=== PATIENT | female | born 1980 | race Caucasian/White ===

== ENCOUNTER 2016-11-06 08:29 | Emergency (ER) | payer MEDICAID ==
[2016-11-06 08:29] VITALS: BMI 29.7
--- NOTE | 2016-11-06 09:09 | C.PDOC ---
History Of Present Illness 36 y/o female presents to the ED complaining of vaginal bleeding since this morning. She reports that she is 6 weeks and she noticed bleeding after intercourse. Patient denies any care and states she has not seen an DIRECTOR IMMUNOLOGY, she just took two home tests. Patient notes that she had 4 prior pregnancies, 3 c-sections, and 1 miscarriage. She denies any abdominal pain, back pain, chest pain, fevers, or other complaints. Time Seen by Provider: 11/06/16 08:51 Chief Complaint (Nursing): Female Genitourinary History Per: Patient History/Exam Limitations: no limitations Onset/Duration Of Symptoms: Hrs, Sudden Onset, Persistent Current Symptoms Are (Timing): Still Present Recent travel outside of the [place]: No Past Medical History Reviewed: Historical Data, Nursing Documentation, Vital Signs Vital Signs: Last Vital Signs Temp 98.9 F 11/06/16 11:51 Pulse 64 11/06/16 11:51 Resp 17 11/06/16 11:51 BP 112/69 11/06/16 11:51 Pulse Ox 97 11/06/16 12:07 - Medical History PMH: Anemia, Asthma, Cardia Arrhythmia (Xmqus-Culedjobg-Hveax syndrome) Surgical History: No Surg Hx - [facility] Procedures EXTRACTION OF POC, LOW CERVICAL, OPEN APPROACH (12/10/15) TETANUS TOXOID ADMINIST (02/18/15) Family History: States: Unknown Family Hx - Social History Hx Tobacco Use: No Hx Alcohol Use: No Hx Substance Use: No - Immunization History Hx Tetanus Toxoid Vaccination: Yes Hx Influenza Vaccination: Yes (May 2016) Hx Pneumococcal Vaccination: No Review Of Systems Constitutional: Negative for: Fever Cardiovascular: Negative for: Chest Pain Respiratory: Negative for: Cough, Shortness of Breath Gastrointestinal: Negative for: Vomiting, Abdominal Pain, Diarrhea Genitourinary: Positive for: Vaginal Bleeding. Negative for: Dysuria Musculoskeletal: Negative for: Back Pain Neurological: Negative for: Headache, Dizziness Physical Exam - Physical Exam Appears: Non-toxic, No Acute Distress Skin: Normal Color, Warm, Dry Head: Atraumatic, Normacephalic Eye(s): bilateral: Normal Inspection, EOMI Neck: Normal ROM, Supple Chest: Symmetrical Cardiovascular: Rhythm Regular Respiratory: Normal Breath Sounds, No Rales, No Rhonchi, No Wheezing Gastrointestinal/Abdominal: Soft, No Tenderness, No Mass, No Distention, No Guarding, No Rebound Back: Normal Inspection, No CVA Tenderness Extremity: Bilateral: Atraumatic, Normal Color And Temperature, Normal ROM Neurological/Psych: Oriented x3, Normal Speech Gait: Steady ED Course And Treatment - Laboratory Results Result Diagrams: 11/06/16 09:20 11/06/16 09:20 O2 Sat by Pulse Oximetry: 97 (ra) Pulse Ox Interpretation: Normal - CT Scan/US Ultrasound Other Rad Studies (CT/US): Read By Radiologist (DR. Waddell, Rosa Valencia MD), Radiology Report Reviewed CT/US Interpretation: Findings: The uterus measures approximately 12.6 x 6.0 x 6.5 cm. Anteverted. Cervix length measures approximately 3.6 cm. There is a single intrauterine fetus present. 2 mm yolk sac. Irregular-appearing gestational sac is noted within the lower uterine segment and measures approximately 1.5 cm, compatible with a gestational age of 5 weeks 6 days. The crown-rump length measures 0.1 cm, too small for gestational age calculation. There is heart motion which measured 93.8 BPM. The right ovary measures 7.5 x 6.0 x 5.1 cm and contains 2 adjacent cysts versus 6.1 x 5.3 x 5.3 cm septated cyst. The left ovary measures 3.0 x 1.5 x 2.2 cm. Flow was demonstrated to both ovaries. Small pelvic free fluid. Impression: Irregular- appearing gestational sac is noted within the lower uterine segment. Estimated gestational 5 weeks 6 days. Bradycardia with heart rate 93.8 bpm. Recommend RESEARCH PROGRAM INTERNSHIP consultation, clinical correlation, and close follow-up as indicated. Advise an anomaly screen at 16-18 weeks gestational age. Two adjacent cysts versus septated 6.1 cm right ovarian cyst. Recommend attention on short-term follow-up (6 weeks). - Physician Consult Information Time Consulting Physician Contacted: 12:05 Physician Contacted: Mookie Ortega Outcome Of Conversation: Discussed case including US findings and labs. Recommends repeat US in one week and to follow up with ob.application development project manager in 2 days Medical Decision Making Medical Decision Making: Impression: Vaginal bleeding. Pt states 6 weeks Plan: * Ultrasound * Blood Work * Urinalysis * Urine HCG * Urine Culture Progress: Labs and urinalysis reviewed and unremarkable. [facility] is >[id number] US reviewed showing Irregular-appearing gestational sac is noted within the lower uterine segment. Estimated gestational 5 weeks 6 days. Bradycardia with heart rate 93.8 bpm. Recommend RESEARCH PROGRAM INTERNSHIP consultation, clinical correlation, and close follow-up as indicated. Advise an anomaly screen at 16-18 weeks gestational age. Spoke with ob.application development project manager Dr Ortega who recommends follow up and repeat US in one week Patient remained afebrile alert and oriented in no acute distress. Advise patient to follow up with transportation mechanic for further evaluation and repeat lab and US in one week Disposition Counseled Patient/Family Regarding: Need For Followup, Rx Given - Disposition Referrals: [facility] [Outside] [facility] [Outside] Disposition: HOME/ ROUTINE Disposition Time: 12:05 Condition: STABLE Additional Instructions: Your ultrasound shows 5weeks 6 days . Please follow up with ob.application development project manager in 2 days and repeat ultrasound in 1 week Return to the emergency department at any time if symptoms persist or worsen. Instructions: Threatened Miscarriage (ED) - POA Present On Arrival: None - Clinical Impression Clinical Impression: Threatened - PA / FRAME POLISHER / Resident Statement MD/DO has reviewed & agrees with the documentation as recorded. - Scribe Statement The provider has reviewed the documentation as recorded by the Scribe (Nayana Portillo) All medical record entries made by the Scribe were at my direction and personally dictated by me. I have reviewed the chart and agree that the record accurately reflects my personal performance of the history, physical exam, medical decision making, and the department course for this patient. I have also personally directed, reviewed, and agree with the discharge instructions and disposition.
[2016-11-06 09:26] LABS: RBC URINE 298 /hpf (0-3); URINE BACTERIA RARE (<OCC); URINE BILIRUBIN NEGATIVE (NEGATIVE); URINE BLOOD 3+ (NEGATIVE); URINE COLOR Yellow (YELLOW); URINE GLUCOSE (UA) NORMAL (Normal); URINE KETONE NEGATIVE (NEGATIVE); URINE LEUKOCYTE ESTERASE NEG Leu/uL (Negative); URINE PROTEIN NEGATIVE (NEGATIVE); URINE UROBILINOGEN NORMAL mg/dL (0.2-1.0); WBC URINE 1 /hpf (0-5)
[2016-11-06 09:34] LABS: BASO # 0.1 K/uL (0.0-0.2); BASO % 1.1 % (0.0-2.0); EOS # 0.2 K/uL (0.0-0.7); EOS % 3.5 % (0.0-4.0); LYMPH # 1.2 K/uL (1.0-4.3); LYMPH % 19.8 % (20.0-40.0); MEAN CELL VOLUME 79.5 fL (81.0-99.0); MEAN CORPUSCULAR HEMOGLOBIN 28.2 pg (27.0-31.0); MEAN CORPUSCULAR HGB CONC 35.4 g/dL (33.0-37.0); MEAN PLATELET VOLUME 7.4 fL (7.2-11.7); MONO # 0.3 K/uL (0.0-0.8); MONO % 5.4 % (0.0-10.0); RED CELL DISTRIBUTION WIDTH 13.9 % (11.5-14.5); WHITE BLOOD COUNT 5.9 K/uL (4.8-10.8)
[2016-11-06 09:41] LABS: CHLORIDE 100 mmol/L (98-107)
[2016-11-06 09:42] LABS: POTASSIUM 4.1 mmol/L (3.6-5.2); SODIUM 138 mmol/L (132-148)
[2016-11-06 09:44] LABS: ALB/GLOB RATIO 1.2 (1.0-2.1); ALKALINE PHOSPHATASE 44 U/L (38-126); AST/SGOT 15 U/L (14-36); BILIRUBIN,TOTAL 0.7 mg/dL (0.2-1.3); BLOOD UREA NITROGEN 11 mg/dL (7-17); CARBON DIOXIDE 24 mmol/L (22-30); GFR AFRICAN-AMERICAN > 60; TOTAL PROTEIN 7.3 g/dL (6.3-8.3)
[2016-11-06 09:45] LABS: ALT/SGPT 22 U/L (9-52); CALCIUM 8.9 mg/dl (8.6-10.4); GLUCOSE,RANDOM 102 mg/dL (65-105)
--- NOTE | 2016-11-06 11:49 | US ---
1st trimester ultrasound Indication: 6 week with bleeding Comparison: None Technique: Real-time transabdominal pelvic ultrasound was performed. In addition a transvaginal pelvic ultrasound was necessary to better depict pelvic anatomy Findings: The uterus measures approximately 12.6 x 6.0 x 6.5 cm. Anteverted. Cervix length measures approximately 3.6 cm. There is a single intrauterine fetus present. 2 mm yolk sac. Irregular-appearing gestational sac is noted within the lower uterine segment and measures approximately 1.5 cm, compatible with a gestational age of 5 weeks 6 days. The crown-rump length measures 0.1 cm, too small for gestational age calculation. There is heart motion which measured 93.8 BPM. The right ovary measures 7.5 x 6.0 x 5.1 cm and contains 2 adjacent cysts versus 6.1 x 5.3 x 5.3 cm septated cyst. The left ovary measures 3.0 x 1.5 x 2.2 cm. Flow was demonstrated to both ovaries. Small pelvic free fluid. Impression: Irregular-appearing gestational sac is noted within the lower uterine segment. Estimated gestational 5 weeks 6 days. Bradycardia with heart rate 93.8 bpm. Recommend WATER RESOURCES TECHNICAL OFFICER consultation, clinical correlation, and close follow-up as indicated. Advise an anomaly screen at 16-18 weeks gestational age. Two adjacent cysts versus septated 6.1 cm right ovarian cyst. Recommend attention on short-term follow-up (6 weeks).
[2016-11-06 11:54] VITALS: BP 112/69; PULSE 64; RESP 17; TEMP 98.9
[2016-11-06 11:59] VITALS: O2SAT 97
== END 2016-11-06 12:20 | disposition home or self-care (01) ==
LOC: C.ER 08:29
DX: O20.0 Threatened abortion (principal); Z3A.01 Less than 8 weeks gestation of pregnancy

== ENCOUNTER 2016-11-07 10:31 | Emergency (ER) | payer MEDICAID ==
[2016-11-07 11:08] VITALS: BMI 31.8
--- NOTE | 2016-11-07 12:10 | C.PDOC ---
History Of Present Illness 36 y/o female presents to the ED for evaluation of abdominal cramping. She reports that she is 6 weeks , A1, and she hasn't had any care or been to see the TURBO OPERATOR, she just took two home tests. Patient also notes that she had 3 c-sections and it is common in her family to give pre term. She states that she was evaluated in the ED yesterday for vaginal bleeding and ultrasound showed irregular gestational sac and bradycardia of the fetus. Today patient passed some tissue which she has brought with her to the ED, stating that she is upset because she is concerned for miscarriage. Otherwise patient reports bleeding has subsided. She denies any fevers, shortness of breath, urinary symptoms, back pain, or vomiting. Time Seen by Provider: 11/07/16 11:43 Chief Complaint (Nursing): Female Genitourinary History Per: Patient History/Exam Limitations: no limitations Onset/Duration Of Symptoms: Days (1), Intermittent Episodes, Gradual, Persistent Current Symptoms Are (Timing): Still Present Recent travel outside of the [place]: No Past Medical History Reviewed: Historical Data, Nursing Documentation, Vital Signs Vital Signs: Last Vital Signs Temp 98.3 F 11/07/16 13:32 Pulse 73 11/07/16 13:32 Resp 16 11/07/16 13:32 BP 131/80 11/07/16 13:32 Pulse Ox 98 11/07/16 13:32 - Medical History PMH: Anemia, Asthma, Cardia Arrhythmia (Tncwx-Wdqgzalpa-Usjky syndrome) Surgical History: No Surg Hx - [facility] Procedures EXTRACTION OF POC, LOW CERVICAL, OPEN APPROACH (12/10/15) TETANUS TOXOID ADMINIST (02/18/15) Family History: States: Unknown Family Hx - Social History Hx Tobacco Use: No Hx Alcohol Use: No Hx Substance Use: No - Immunization History Hx Tetanus Toxoid Vaccination: Yes Hx Influenza Vaccination: Yes (May 2016) Hx Pneumococcal Vaccination: No Review Of Systems Except As Marked, All Systems Reviewed And Found Negative. Constitutional: Negative for: Fever Respiratory: Negative for: Shortness of Breath Gastrointestinal: Positive for: Abdominal Pain (cramping). Negative for: Vomiting Genitourinary: Positive for: Vaginal Bleeding (resolved), Other (passing tissue) . Negative for: Dysuria Musculoskeletal: Negative for: Back Pain Physical Exam - Physical Exam Appears: Non-toxic, No Acute Distress Skin: Normal Color, Warm, Dry Head: Atraumatic, Normacephalic Eye(s): bilateral: Normal Inspection, PERRL Oral Mucosa: Moist Neck: Normal ROM, Supple Chest: Symmetrical Cardiovascular: Rhythm Regular Respiratory: Normal Breath Sounds, No Rales, No Rhonchi, No Wheezing Gastrointestinal/Abdominal: Normal Exam, Soft, No Tenderness Back: Normal Inspection, No CVA Tenderness Extremity: Normal ROM Neurological/Psych: Oriented x3, Normal Speech, Normal Cognition ED Course And Treatment O2 Sat by Pulse Oximetry: 100 (ra) Pulse Ox Interpretation: Normal - CT Scan/US pelvic US Other Rad Studies (CT/US): Read By Radiologist, Radiology Report Reviewed CT/US Interpretation: Accession No. : [id number]. Patient Name / ID : SYLVAIN MONCADA / [id number]. Exam Date : 11/07/2016 12:48:08 ( Approved ). Study Comment : Sex / Age : F / 36Y. Creator : Rosa Bruno MD. Dictator : Rosa Bruno MD. Deputy Insurance Commissioner : Grape Picker : Rosa Bruno MD. Approver2 : Report Date : 11/07/2016 13:23:54. My Comment : . Indication: , seen yesterday, passed tissue today. Comparison: 1st trimester ultrasound performed 11/06/16. Technique: Transvaginal pelvic ultrasound. Findings: The uterus measures approximately 11.8 x 6.3 x 7.4 cm. Anteverted. Cervix length measures approximately 3.6 cm. There is a single intrauterine fetus present. The gestational sac is identified within the lower uterine segment and measures 1.6 cm and is compatible with a gestational age of 5 weeks 6 days. The crown-rump length measures 0.2 cm and is compatible with a gestational age of 5 weeks 5 days. There is heart motion which measured 96.7 BPM. The right ovary measures 7.0 x 6.2 x 7.0 cm. Right adnexal septated 6.4 x 6.2 x 5.1 cm cyst. The left ovary measures 3.3 x 2.1 x 2.6 cm. Blood flow was demonstrated to both ovaries. Impression: Live single intrauterine with estimated gestational age 5 weeks 6 days. Gestational sac is noted within the lower uterine segment. heart rate 96.7 bpm, bradycardia. 6.4 cm right adnexal cyst. Recommend attention on short-term follow-up (6 weeks) Progress Note: Ultrasound was ordered and still shows viable IUP. Patient was instructed to follow up with OBGYN. Bed rest and pelvic rest were recommended. Disposition - Disposition Disposition: HOME/ ROUTINE Disposition Time: 13:44 Condition: STABLE Additional Instructions: Follow up with PMD within 1-2 days. return to ED if feel worse. Bed rest and pelvic rest as we discussed. Instructions: Threatened Miscarriage (ED) - Clinical Impression Clinical Impression: Threatened in early - PA / CNC MACHINE OPERATOR / Resident Statement MD/DO has reviewed & agrees with the documentation as recorded. - Scribe Statement The provider has reviewed the documentation as recorded by the Scribe (Nayana Portillo) All medical record entries made by the Scribe were at my direction and personally dictated by me. I have reviewed the chart and agree that the record accurately reflects my personal performance of the history, physical exam, medical decision making, and the department course for this patient. I have also personally directed, reviewed, and agree with the discharge instructions and disposition.
--- NOTE | 2016-11-07 13:25 | US ---
Indication: , seen yesterday, passed tissue today Comparison: 1st trimester ultrasound performed 11/06/16 Technique: Transvaginal pelvic ultrasound. Findings: The uterus measures approximately 11.8 x 6.3 x 7.4 cm. Anteverted. Cervix length measures approximately 3.6 cm. There is a single intrauterine fetus present. The gestational sac is identified within the lower uterine segment and measures 1.6 cm and is compatible with a gestational age of 5 weeks 6 days. The crown-rump length measures 0.2 cm and is compatible with a gestational age of 5 weeks 5 days. There is heart motion which measured 96.7 BPM. The right ovary measures 7.0 x 6.2 x 7.0 cm. Right adnexal septated 6.4 x 6.2 x 5.1 cm cyst. The left ovary measures 3.3 x 2.1 x 2.6 cm. Blood flow was demonstrated to both ovaries. Impression: Live single intrauterine with estimated gestational age 5 weeks 6 days. Gestational sac is noted within the lower uterine segment. heart rate 96.7 bpm, bradycardia. 6.4 cm right adnexal cyst. Recommend attention on short-term follow-up (6 weeks).
[2016-11-07 13:33] VITALS: BP 131/80; PULSE 73; RESP 16; TEMP 98.3
[2016-11-07 13:51] VITALS: O2SAT 100
== END 2016-11-07 14:13 | disposition home or self-care (01) ==
LOC: C.ER 10:31
DX: O20.0 Threatened abortion (principal); Z3A.01 Less than 8 weeks gestation of pregnancy

== ENCOUNTER 2016-11-18 21:06 | Emergency (ER) | payer MEDICAID ==
[2016-11-18 21:06] VITALS: BMI 31.8
[2016-11-18] MEDS ORDERED: Sodium Chloride 0.9% 1,000 ML IV ONE (21:49)
--- NOTE | 2016-11-18 21:49 | C.PDOC ---
History Of Present Illness 36 y/o female, who is 7 weeks , a1, presents to ED with complaint of vaginal bleeding since this morning. Patient notes bleeding has been progressively worsening throughout the day. Denies fever, chills, nausea, or vomiting. Time Seen by Provider: 11/18/16 21:49 Chief Complaint (Nursing): Abdominal Pain History Per: Patient History/Exam Limitations: no limitations Onset/Duration Of Symptoms: Hrs Current Symptoms Are (Timing): Still Present Pain Scale Rating Of: 0 Location Of Pain/Discomfort: Suprapubic Radiation Of Pain To:: None Quality Of Discomfort: Cramping Associated Symptoms: denies: Vomiting, Diarrhea Recent travel outside of the [place]: No Abnormal Vaginal Bleeding: Yes : 5 Para: 3 Miscarriage: 1 Past Medical History Reviewed: Historical Data, Nursing Documentation, Vital Signs Vital Signs: Last Vital Signs Temp 99.0 F 11/18/16 23:11 Pulse 76 11/18/16 23:11 Resp 16 11/18/16 23:11 BP 117/74 11/18/16 23:11 Pulse Ox 98 11/18/16 23:11 - Medical History PMH: Anemia, Asthma, Cardia Arrhythmia (Efuqs-Ddbpluejy-Ihrgp syndrome) - [facility] Procedures EXTRACTION OF POC, LOW CERVICAL, OPEN APPROACH (12/10/15) TETANUS TOXOID ADMINIST (02/18/15) Family History: States: Unknown Family Hx - Social History Hx Tobacco Use: No Hx Alcohol Use: No Hx Substance Use: No - Immunization History Hx Tetanus Toxoid Vaccination: Yes Hx Influenza Vaccination: Yes (May 2016) Hx Pneumococcal Vaccination: No Review Of Systems Constitutional: Negative for: Fever, Chills Gastrointestinal: Positive for: Abdominal Pain. Negative for: Nausea, Vomiting Genitourinary: Positive for: Vaginal Bleeding. Negative for: Vaginal Discharge Physical Exam - Physical Exam Appears: Non-toxic, No Acute Distress Skin: Warm, Dry Oral Mucosa: Moist Chest: Symmetrical Cardiovascular: Rhythm Regular Respiratory: No Rales, No Rhonchi, No Wheezing Gastrointestinal/Abdominal: Soft, Tenderness (mild, suprapubic), No Guarding, No Rebound Back: Normal Inspection Extremity: Normal ROM Neurological/Psych: Oriented x3, Normal Speech, Normal Cognition ED Course And Treatment - Laboratory Results Result Diagrams: 11/18/16 22:10 11/18/16 22:10 O2 Sat by Pulse Oximetry: 97 (RA) Pulse Ox Interpretation: Normal Progress Note: Labs, ultrasound, IVFs. Reevaluation Time: 23:23 Reassessment Condition: Improved Disposition Counseled Patient/Family Regarding: Studies Performed, Diagnosis - Disposition Referrals: Patricia Chapa MD [Medical Doctor] - Disposition: HOME/ ROUTINE Disposition Time: 21:49 Condition: FAIR Instructions: Threatened Miscarriage (ED) - Clinical Impression Clinical Impression: Threatened in early , Subchorionic hemorrhage - Scribe Statement The provider has reviewed the documentation as recorded by the Nghia Garcia Provider Attestation: Provider Scribe Attestation: All medical record entries made by the Rose Marieibe were at my direction and personally dictated by me. I have reviewed the chart and agree that the record accurately reflects my personal performance of the history, physical exam, medical decision making, and the department course for this patient. I have also personally directed, reviewed, and agree with the discharge instructions and disposition.
[2016-11-18 22:13] LABS: BASO # 0.1 K/uL (0.0-0.2); BASO % 0.9 % (0.0-2.0); EOS # 0.1 K/uL (0.0-0.7); LYMPH # 1.5 K/uL (1.0-4.3); LYMPH % 20.1 % (20.0-40.0); MEAN CELL VOLUME 79.9 fL (81.0-99.0); MEAN CORPUSCULAR HEMOGLOBIN 27.3 pg (27.0-31.0); MEAN CORPUSCULAR HGB CONC 34.2 g/dL (33.0-37.0); MEAN PLATELET VOLUME 7.3 fL (7.2-11.7); MONO # 0.4 K/uL (0.0-0.8); MONO % 5.2 % (0.0-10.0); NRBC % 0.1 % (0.0-2.0); RED CELL DISTRIBUTION WIDTH 14.4 % (11.5-14.5); WHITE BLOOD COUNT 7.3 K/uL (4.8-10.8)
[2016-11-18 22:21] LABS: RBC URINE 28 /hpf (0-3); URINE BACTERIA RARE (<OCC); URINE BILIRUBIN NEGATIVE (NEGATIVE); URINE BLOOD 3+ (NEGATIVE); URINE COLOR Yellow (YELLOW); URINE GLUCOSE (UA) NORMAL (Normal); URINE KETONE NEGATIVE (NEGATIVE); URINE LEUKOCYTE ESTERASE NEG Leu/uL (Negative); URINE PROTEIN 1+ mg/dL (NEGATIVE); URINE UROBILINOGEN NORMAL mg/dL (0.2-1.0); WBC URINE 2 /hpf (0-5)
[2016-11-18 22:22] LABS: INR 1.1
[2016-11-18 22:23] LABS: CHLORIDE 100 mmol/L (98-107); SODIUM 134 mmol/L (132-148)
[2016-11-18 22:24] LABS: POTASSIUM 4.1 mmol/L (3.6-5.2)
[2016-11-18 22:26] LABS: ALB/GLOB RATIO 1.3 (1.0-2.1); ALKALINE PHOSPHATASE 47 U/L (38-126); AST/SGOT 15 U/L (14-36); BLOOD UREA NITROGEN 12 mg/dL (7-17); CARBON DIOXIDE 20 mmol/L (22-30); GFR AFRICAN-AMERICAN > 60; GLUCOSE,RANDOM 93 mg/dL (65-105); TOTAL PROTEIN 7.2 g/dL (6.3-8.3)
[2016-11-18 22:27] LABS: ALT/SGPT 23 U/L (9-52)
--- NOTE | 2016-11-18 22:54 | US ---
EXAM: US First Trimester, Transabdominal. CLINICAL HISTORY: 36 years old, female; Signs and symptoms; Lmp or gestational age (in weeks): 09/25/2016; Other: Vaginal bleeding; ; Additional info: Vag bleed, 7 weeks preg TECHNIQUE: Real-time transabdominal obstetrical ultrasound of the maternal pelvis and a first trimester with image documentation. COMPARISON: No relevant prior studies available. FINDINGS: Gestation: Single live intrauterine gestation, located within lower uterine segment. heart rate of 140 beats per minute. Sawyer-rump length of 1.46 cm, correlating with gestational age of 7 weeks 6 days. Uterus/cervix: 3.1 x 0.7 x 1.7 cm collection along gestational sac. No cervical dilatation or effacement. Ovaries: RIGHT ovary: 6.9 x 4.7 x 5.8 cm septated anechoic lesion. LEFT ovary: Normal. No adnexal masses. Free fluid: No significant free fluid. IMPRESSION: 1. Single live intrauterine gestation with low implantation. 2. Subchorionic hemorrhage. 3. Probable RIGHT ovarian cyst. 4. Incidental/non-acute findings are described above. EXAM: US , Transvaginal. CLINICAL HISTORY: 36 years old, female; Signs and symptoms; Lmp or gestational age (in weeks): 09/25/2016; Other: Vaginal bleeding; ; Additional info: Vag bleed, 7 weeks preg TECHNIQUE: Real-time transvaginal obstetrical ultrasound of the maternal pelvis and a first trimester with image documentation. Transvaginal imaging was used for better evaluation of the fetus and adnexa. COMPARISON: No relevant prior studies available. FINDINGS: Gestation: Single live intrauterine gestation, located within lower uterine segment. heart rate of 140 beats per minute. Sawyer-rump length of 1.46 cm, correlating with gestational age of 7 weeks 6 days. Uterus/cervix: 3.1 x 0.7 x 1.7 cm collection along gestational sac. No cervical dilatation or effacement. Ovaries: RIGHT ovary: 6.9 x 4.7 x 5.8 cm septated anechoic lesion. LEFT ovary: Normal. No adnexal masses. Free fluid: No significant free fluid.
[2016-11-18 23:25] VITALS: O2SAT 97
[2016-11-19 00:37] VITALS: BP 103/53; PULSE 87; RESP 18; TEMP 98.4
== END 2016-11-19 01:11 | disposition home or self-care (01) ==
LOC: C.ER 21:06
DX: O20.0 Threatened abortion (principal); Z3A.01 Less than 8 weeks gestation of pregnancy
CPT/HCPCS: 76805; 76817; 80053; 81001; 84702; 85025; 85610; 85730; 86850; 86900; 96360; 99284; J2792; J7040

== ENCOUNTER 2016-12-09 00:51 | Emergency (ER) | payer MEDICAID ==
[2016-12-09 00:51] VITALS: BMI 31.8
[2016-12-09 01:24] VITALS: BP 125/81; PULSE 84; RESP 20; TEMP 98.4; O2SAT 97
--- NOTE | 2016-12-09 02:04 | C.PDOC ---
History Of Present Illness 36 year old patient presents to the ED complaining of right foot pain after falling up two stairs just prior to arrival. Patient reports she is able to bear weight with pain. She is 10 weeks . Patient denies any abdominal injury, nausea, vomiting, numbness, weakness, vaginal bleeding, back pain, or head injury. Time Seen by Provider: 12/09/16 01:25 Chief Complaint (Nursing): Lower Extremity Problem/Injury History Per: Patient History/Exam Limitations: no limitations Onset/Duration Of Symptoms: Hrs (prior to arrival) Current Symptoms Are (Timing): Still Present Severity: Mild Pain Scale Rating Of: 3 Recent travel outside of the [place]: No - Ankle/Foot Description Of Injury: Fell Currently Unable To: Bear Weight Past Medical History Reviewed: Historical Data, Nursing Documentation, Vital Signs Vital Signs: Last Vital Signs Temp 98.4 F 12/09/16 01:21 Pulse 84 12/09/16 01:21 Resp 20 12/09/16 01:21 BP 125/81 12/09/16 01:21 Pulse Ox 97 12/09/16 05:38 - Medical History PMH: Anemia, Asthma, Cardia Arrhythmia (Uafdj-Emcbzppeg-Xmzdu syndrome) - [facility] Procedures EXTRACTION OF POC, LOW CERVICAL, OPEN APPROACH (12/10/15) TETANUS TOXOID ADMINIST (02/18/15) Family History: States: Unknown Family Hx - Social History Hx Tobacco Use: No Hx Alcohol Use: No Hx Substance Use: No - Immunization History Hx Tetanus Toxoid Vaccination: Yes Hx Influenza Vaccination: Yes (May 2016) Hx Pneumococcal Vaccination: No Review Of Systems Except As Marked, All Systems Reviewed And Found Negative. Gastrointestinal: Negative for: Nausea, Vomiting, Abdominal Pain Genitourinary: Negative for: Vaginal Bleeding Musculoskeletal: Positive for: Foot Pain (right). Negative for: Back Pain Neurological: Negative for: Weakness, Numbness, Other (head injury) Physical Exam - Physical Exam Appears: Non-toxic, No Acute Distress Skin: Warm, Dry Head: Atraumatic, Normacephalic Eye(s): bilateral: PERRL, EOMI Chest: Symmetrical Cardiovascular: Rhythm Regular Respiratory: Normal Breath Sounds, No Rales, No Rhonchi, No Wheezing Gastrointestinal/Abdominal: Soft, No Tenderness Back: Normal Inspection, No CVA Tenderness Extremity: Normal ROM, No Pedal Edema, No Calf Tenderness, Capillary Refill (<2 seconds), No Deformity, Other ((+)tenderness to the dorsal aspect of the mid right foot (-)deformities (-)swelling (+)<2 seconds capillary refill (+)normal pulse and sensation (+)mild decrease of ROM due to pain) ED Course And Treatment O2 Sat by Pulse Oximetry: 97 (RA) Pulse Ox Interpretation: Normal - Other Rad right foot x-ray X-Ray: Interpreted by Me, Viewed By Me Interpretation: no fractures. Progress Note: Plan: -Right foot x-ray. -Tylenol. -Reassess and disposition. X-ray results were reviewed. Alfonzo wrap was applied to the patient's right foot. Then an ortho shoe was put on. Upon reassessment, patient's pain is improving. Patient is resting comfortably, with no acute distress, and is ready for discharge. She is instructed to follow up with podiatry/PMD. Return if symptoms worsen. Disposition Counseled Patient/Family Regarding: Diagnosis, Need For Followup, Rx Given - Disposition Disposition: HOME/ ROUTINE Disposition Time: 02:02 Condition: STABLE Additional Instructions: Apply ICE Tylenol PO as needed for pain Leg elevation Return to ER if worse Instructions: Foot Sprain (ED) - Clinical Impression Clinical Impression: Right foot sprain - PA / PROCESS CONTROL SUPERVISOR / Resident Statement MD/DO has reviewed & agrees with the documentation as recorded. - Scribe Statement The provider has reviewed the documentation as recorded by the Scribe Lupe Laguerre All medical record entries made by the Scribe were at my direction and personally dictated by me. I have reviewed the chart and agree that the record accurately reflects my personal performance of the history, physical exam, medical decision making, and the department course for this patient. I have also personally directed, reviewed, and agree with the discharge instructions and disposition.
--- NOTE | 2016-12-09 10:05 | RAD ---
PROCEDURE: Right Foot Radiographs. HISTORY: pain, twisting injury COMPARISON: 02/18/2015 FINDINGS: BONES: No fracture seen. Interval increased 1st metatarsal head osseous hypertrophy. Interval increased medial subcortical cyst-1st metatarsal head Interval increase hallux valgus orientation Interval demonstration of a accessory ossification center -an os tibial externum JOINTS: First metatarsal-phalangeal joint space narrowing progressive since prior exam SOFT TISSUES: Minimal dorsal midfoot soft tissue swelling -consistent with patient's area of interest OTHER FINDINGS: Fourth toe scissoring over the 3rd and 5th minimally over the 4th -similar findings IMPRESSION: No interval fracture. Progressive osteoarthrosis as above
== END 2016-12-09 02:28 | disposition home or self-care (01) ==
LOC: C.ER 00:51
DX: S93.601A Unspecified sprain of right foot, initial encounter (principal); W10.9XXA Fall (on) (from) unspecified stairs and steps, initial encounter

== ENCOUNTER 2017-01-10 22:30 | Emergency (ER) | payer MEDICAID ==
[2017-01-10 22:30] VITALS: BMI 31.8
[2017-01-10 22:40] VITALS: RESP 20
--- NOTE | 2017-01-10 23:09 | C.PDOC ---
History Of Present Illness Pt ate a taco supreme sald and a few hours later developed m nausea, voming , diarrhea and some abdominal cramping. Decreased po intake. Pt is Time Seen by Provider: 01/10/17 23:08 Chief Complaint (Nursing): Abdominal Pain History Per: Patient History/Exam Limitations: no limitations Onset/Duration Of Symptoms: Hrs Current Symptoms Are (Timing): Still Present Context: Food Severity: Moderate Pain Scale Rating Of: 4 Location Of Pain/Discomfort: Diffuse Radiation Of Pain To:: None Quality Of Discomfort: Cramping Associated Symptoms: Nausea, Vomiting, Diarrhea. denies: Fever, Chills Exacerbating Factors: None Alleviating Factors: None Last Bowel Movement: Today Recent travel outside of the [place]: No Additional History Per: Patient Abnormal Vaginal Bleeding: No Past Medical History Reviewed: Historical Data, Nursing Documentation, Vital Signs Vital Signs: Last Vital Signs Temp 98.1 F 01/10/17 22:36 Pulse 93 H 01/10/17 22:36 Resp 20 01/10/17 22:36 BP 112/65 01/10/17 22:36 Pulse Ox 97 01/10/17 23:22 - Medical History PMH: Anemia, Asthma, Cardia Arrhythmia (Ngpsf-Gjinnzrfj-Sypzz syndrome) Denies: Chronic Kidney Disease - [facility] Procedures EXTRACTION OF POC, LOW CERVICAL, OPEN APPROACH (12/10/15) TETANUS TOXOID ADMINIST (02/18/15) Family History: States: No Known Family Hx - Social History Hx Tobacco Use: No Hx Alcohol Use: No Hx Substance Use: No - Immunization History Hx Tetanus Toxoid Vaccination: Yes Hx Influenza Vaccination: Yes (May 2016) Hx Pneumococcal Vaccination: No Review Of Systems Constitutional: Negative for: Fever, Chills Eyes: Negative for: Redness ENT: Negative for: Throat Pain Cardiovascular: Negative for: Chest Pain, Palpitations Respiratory: Negative for: Shortness of Breath Gastrointestinal: Positive for: Nausea, Vomiting, Abdominal Pain, Diarrhea Genitourinary: Negative for: Dysuria Musculoskeletal: Negative for: Back Pain Skin: Negative for: Rash, Lesions, Jaundice, Bruising Neurological: Negative for: Weakness Psych: Negative for: Anxiety Physical Exam - Physical Exam Appears: Non-toxic, No Acute Distress Skin: Warm, Dry Eye(s): bilateral: Normal Inspection Oral Mucosa: Moist Neck: Supple Chest: Symmetrical Cardiovascular: Rhythm Regular Respiratory: No Rales, No Rhonchi, No Wheezing Gastrointestinal/Abdominal: Soft, Tenderness (mild , diffus), Distention ( gravid uterus), No Rebound Back: Normal Inspection Extremity: Normal ROM Extremity: Bilateral: Atraumatic, Normal Color And Temperature Neurological/Psych: Oriented x3, Normal Speech, Normal Cognition Gait: Steady ED Course And Treatment - Laboratory Results Result Diagrams: 01/10/17 23:37 01/10/17 23:37 O2 Sat by Pulse Oximetry: 97 Pulse Ox Interpretation: Normal Reevaluation Time: 01:15 Reassessment Condition: Improved Disposition Counseled Patient/Family Regarding: Studies Performed, Diagnosis, Need For Followup, Rx Given - Disposition Referrals: Steven Isidro, [employer]CHILT, COMMISSARY PRODUCTION SUPERVISOR [Advanced Practice Nurse] - Disposition: HOME/ ROUTINE Disposition Time: 23:09 Condition: FAIR Prescriptions: Ondansetron ODT [Zofran ODT] 1 odt PO BID PRN #6 odt PRN Reason: Nausea/Vomiting Instructions: Food Poisoning (ED), Acute Nausea and Vomiting (ED) - Clinical Impression Clinical Impression: Abdominal pain, Diarrhea, Food poisoning
[2017-01-10] MEDS ORDERED: Sodium Chloride 0.9% 1,000 ML IV ONE (23:19)
[2017-01-10 23:46] LABS: RBC URINE 2 /hpf (0-3); URINE BILIRUBIN NEGATIVE (NEGATIVE); URINE BLOOD NEGATIVE (NEGATIVE); URINE COLOR Yellow (YELLOW); URINE GLUCOSE (UA) NORMAL (Normal); URINE KETONE TRACE mg/dL (NEGATIVE); URINE LEUKOCYTE ESTERASE NEG Leu/uL (Negative); URINE PROTEIN NEGATIVE (NEGATIVE); URINE UROBILINOGEN NORMAL mg/dL (0.2-1.0); WBC URINE 1 /hpf (0-5)
[2017-01-10 23:48] LABS: CHLORIDE 102 mmol/L (98-107); POTASSIUM 3.8 mmol/L (3.6-5.2); SODIUM 134 mmol/L (132-148)
[2017-01-10 23:49] LABS: BASO % 0.4 % (0.0-2.0); EOS # 0.2 K/uL (0.0-0.7); HEMATOCRIT 35.1 % (34.0-47.0); LYMPH # 0.6 K/uL (1.0-4.3); LYMPH % 6.9 % (20.0-40.0); MEAN CORPUSCULAR HEMOGLOBIN 28.4 pg (27.0-31.0); MEAN CORPUSCULAR HGB CONC 34.7 g/dL (33.0-37.0); MEAN PLATELET VOLUME 7.6 fL (7.2-11.7); MONO # 0.3 K/uL (0.0-0.8); MONO % 3.4 % (0.0-10.0); PLATELET COUNT 147 K/uL (130-400); RED CELL DISTRIBUTION WIDTH 15.1 % (11.5-14.5); WHITE BLOOD COUNT 9.3 K/uL (4.8-10.8)
[2017-01-10 23:51] LABS: ALB/GLOB RATIO 1.2 (1.0-2.1); ALKALINE PHOSPHATASE 44 U/L (38-126); ALT/SGPT 25 U/L (9-52); AST/SGOT 15 U/L (14-36); BILIRUBIN,TOTAL 1.3 mg/dL (0.2-1.3); BLOOD UREA NITROGEN 16 mg/dL (7-17); CALCIUM 8.4 mg/dl (8.6-10.4); CARBON DIOXIDE 22 mmol/L (22-30); GFR AFRICAN-AMERICAN > 60; GLUCOSE,RANDOM 86 mg/dL (65-105); TOTAL PROTEIN 6.8 g/dL (6.3-8.3)
[2017-01-10 23:56] LABS: MEAN CELL VOLUME 81.9 fL (81.0-99.0)
[2017-01-11 01:20] LABS: BASOPHIL 2 % (0-2); EOSINOPHIL 2 % (0-4); NEUTROPHIL 82 % (50-75); TOTAL CELLS COUNTED 100
[2017-01-11 01:48] VITALS: BP 108/67; PULSE 94; TEMP 98.7; O2SAT 98
== END 2017-01-11 01:48 | disposition home or self-care (01) ==
LOC: C.ER 22:30
DX: T62.91XA Toxic effect of unspecified noxious substance eaten as food, accidental (unintentional), initial encounter (principal); R10.9 Unspecified abdominal pain; R19.7 Diarrhea, unspecified
CPT/HCPCS: 80053; 81001; 83690; 85025; 96361; 96374; 96375; 99283; J2405; J7040

== ENCOUNTER 2017-03-26 03:59 | Emergency (ER) | payer MEDICAID ==
[2017-03-26 03:59] VITALS: BMI 31.8
[2017-03-26 04:10] VITALS: PULSE 77; RESP 20
--- NOTE | 2017-03-26 04:14 | C.PDOC ---
History Of Present Illness pt felt sting like pain on right hand which spread up her right arm. Pt is 26 weeks . Speaking in complete sentences, tolerating po. No wheezing. Rash has seince gone Time Seen by Provider: 03/26/17 04:14 Chief Complaint (Nursing): Abnormal Skin Integrity History Per: Patient History/Exam Limitations: no limitations Onset/Duration Of Symptoms: Hrs Current Symptoms Are (Timing): Gone Location Of Injury: Right: Forearm, Hand Quality Of Symptoms: Painful, Itching Severity: Moderate Pain Scale Rating Of: 4 Recent travel outside of the [place]: No Additional History Per: Patient Past Medical History Reviewed: Historical Data, Nursing Documentation, Vital Signs Vital Signs: Last Vital Signs Temp 97.8 F 03/26/17 04:05 Pulse 77 03/26/17 04:05 Resp 20 03/26/17 04:05 BP 117/75 03/26/17 04:05 Pulse Ox 97 03/26/17 04:14 - Medical History PMH: Anemia, Asthma, Cardia Arrhythmia (Ltfuy-Wjjvhwbgj-Ccdap syndrome) Denies: Chronic Kidney Disease - [facility] Procedures EXTRACTION OF POC, LOW CERVICAL, OPEN APPROACH (12/10/15) TETANUS TOXOID ADMINIST (02/18/15) Family History: States: No Known Family Hx - Social History Hx Tobacco Use: No Hx Alcohol Use: No Hx Substance Use: No - Immunization History Hx Tetanus Toxoid Vaccination: Yes Hx Influenza Vaccination: Yes (May 2016) Hx Pneumococcal Vaccination: No Review Of Systems Constitutional: Negative for: Fever, Chills Eyes: Negative for: Redness ENT: Negative for: Mouth Swelling, Throat Pain, Throat Swelling Cardiovascular: Negative for: Chest Pain, Palpitations Respiratory: Negative for: Shortness of Breath Gastrointestinal: Negative for: Nausea, Vomiting Skin: Negative for: Rash, Lesions, Jaundice, Bruising Neurological: Negative for: Weakness Psych: Negative for: Anxiety Physical Exam - Physical Exam Appears: Non-toxic, No Acute Distress Skin: Warm, Dry, No Rash Head: Normacephalic Eye(s): bilateral: Normal Inspection Oral Mucosa: Moist Tongue: No Swelling Lips: No Swelling Throat: No Drooling Chest: Symmetrical Cardiovascular: Rhythm Regular Respiratory: No Rales, No Rhonchi, No Wheezing Neurological/Psych: Oriented x3, Normal Speech, Normal Cognition Gait: Steady ED Course And Treatment O2 Sat by Pulse Oximetry: 97 Pulse Ox Interpretation: Normal Disposition Counseled Patient/Family Regarding: Studies Performed, Diagnosis, Need For Followup, Rx Given - Disposition Referrals: Carl Isidro DO [Doctor Osteopathy] - Disposition: HOME/ ROUTINE Disposition Time: 04:14 Condition: FAIR Additional Instructions: Please return if symptoms recur. Also use benadryl, pepcid Prescriptions: Prednisone [Deltasone] 20 mg PO DAILY #5 tablet Instructions: General Allergic Reaction (ED) Forms: [email or web address] ([place]ic) - Clinical Impression Clinical Impression: Allergic reaction
[2017-03-26 05:01] VITALS: BP 110/72; TEMP 97.4; O2SAT 99
== END 2017-03-26 05:01 | disposition home or self-care (01) ==
LOC: C.ER 03:59
DX: T78.40XA Allergy, unspecified, initial encounter (principal)

== ENCOUNTER 2017-11-12 10:24 | Emergency (ER) | payer MEDICAID ==
[2017-11-12 10:24] VITALS: BMI 31.8
--- NOTE | 2017-11-12 10:44 | C.PDOC ---
History Of Present Illness 37 year old female, whose PMHx includes Asthma and WPW, presents to the ED for evaluation of cold symptoms which began a few days ago. Last night, patient states she developed shortness of breath, chest tightness and wheezing. Patient has been using her nebulizer without significant improvement and now presents to the ED for further evaluation. She denies fever, chills, headache, dizziness , drooling, neck pain, chest pain, palpitations , diaphoresis, abd. pain, V/D, back pain, UTI sx. Ambulate to Ed for evaluation, not in any apparent distress. Time Seen by Provider: 11/12/17 10:39 Chief Complaint (Nursing): Shortness Of Breath History Per: Patient History/Exam Limitations: no limitations Onset/Duration Of Symptoms: Days Current Symptoms Are (Timing): Still Present Quality: Tightness Current Respiratory Medications: See Home Med List Associated Symptoms: denies: Fever, Chills Additional History Per: Patient Past Medical History Reviewed: Historical Data, Nursing Documentation, Vital Signs Vital Signs: Last Vital Signs Temp 98.4 F 11/12/17 13:28 Pulse 72 11/12/17 13:28 Resp 16 11/12/17 13:44 BP 129/86 11/12/17 13:28 Pulse Ox 96 11/12/17 13:28 - Medical History PMH: Anemia, Asthma, Cardia Arrhythmia (Rjery-Revucdcfp-Tmakv syndrome) Denies: Chronic Kidney Disease Surgical History: No Surg Hx - [facility] Procedures EXTRACTION OF POC, LOW CERVICAL, OPEN APPROACH (12/10/15) TETANUS TOXOID ADMINIST (02/18/15) Family History: States: Unknown Family Hx - Social History Hx Tobacco Use: No Hx Alcohol Use: No Hx Substance Use: No - Immunization History Hx Tetanus Toxoid Vaccination: No Hx Influenza Vaccination: Yes (May 2016) Hx Pneumococcal Vaccination: No Review Of Systems Constitutional: Negative for: Fever, Chills ENT: Negative for: Ear Pain, Ear Discharge, Nose Discharge, Nose Congestion, Throat Pain, Throat Swelling Cardiovascular: Negative for: Chest Pain, Palpitations Respiratory: Positive for: Shortness of Breath, Wheezing, Other (chest tightness ) Gastrointestinal: Negative for: Nausea, Vomiting Neurological: Negative for: Altered Mental Status, Headache, Dizziness Physical Exam - Physical Exam Appears: Well, Non-toxic, No Acute Distress Skin: Normal Color, Warm, Dry, No Ecchymosis Head: Normacephalic Eye(s): bilateral: PERRL Ear(s): Bilateral: Normal Nose: No Flaring, No Discharge Oral Mucosa: Moist, No Drooling Tongue: Normal Appearing Lips: Normal Appearing Throat: No Erythema, No Drooling Neck: Trachea Midline, Supple Cardiovascular: Rhythm Regular, No Murmur Respiratory: No Decreased Breath Sounds, No Accessory Muscle Use, No Rales, No Rhonchi, No Stridor, Wheezing (diffuse expiratory B/L) Gastrointestinal/Abdominal: Soft, No Tenderness, No Distention, No Guarding, No Rebound Back: No CVA Tenderness Extremity: Normal ROM, No Deformity, No Swelling Neurological/Psych: Oriented x3, Normal Speech ED Course And Treatment - Laboratory Results Result Diagrams: 11/12/17 11:12 11/12/17 11:12 Lab Interpretation: No Acute Changes ECG: Interpreted By Me, Viewed By Me (and WS attending) ECG Interpretation: No Changes From Prior (10/17/16) Interpretation Of ECG: SR@79/min, LVH, QRS widening. NO acute changes compare to old study. O2 Sat by Pulse Oximetry: 97 Pulse Ox Interpretation: Normal - Radiology CXR: Interpreted by Me, Read By Radiologist CXR Interpretation: Yes: No Acute Disease Progress Note: Bloodwork, urinalysis, CXR, EKG ordered and reviewed. Duoneb INH and Solu-Medrol IVP administered. Pt was OBS in ED for 3 hours and reports moderate improvement in asthma sx. DEnies significant chest tightness or wheezing. On re-evaluation, pt is afebrile, hemodynamicaly stable. Non-toxic, not in resp. distress. PulseOx 97% RA. Neck: Supple, (-) meningeal sign. ENT: no acute findings. Lungs: CTA B/L, BS equal B/L. CVS: (+)S1S2, reg. Abd: benign, (-) guarding, (-) rebound. Neurologicaly intact. Blood work review and appeas normal. CXR review, normal study. Pt has clinical findings c/w asthma exacerbation. Pt advised. ref. to f/u with PMD in 2-3 days for re- eval. return if any new changes. Disposition Counseled Patient/Family Regarding: Studies Performed, Diagnosis, Need For Followup, Rx Given - Disposition Referrals: Steven Isidro, DNP, LABORATORY ENGINEER [Advanced Practice Nurse] - Disposition: HOME/ ROUTINE Disposition Time: 12:30 Condition: STABLE Additional Instructions: Encourage fluids Use Duo nebulizer treatment every 6 hours take medication as prescribed Follow up with PMD in2 -3 days for re-evaluation. return to ED if nay worsening or new changes. Prescriptions: Albuterol/Ipratropium [Duoneb 3 mg/0.5 mg (3 ml) UD] 1 ea IH Q6 #100 neb Prednisone [Deltasone] 60 mg PO DAILY #9 tablet Instructions: Asthma in Adults Forms: [facility] ([place]izen [place]) - Clinical Impression Clinical Impression: Asthma exacerbation - PA / TOOL REPAIRER / Resident Statement MD/DO has reviewed & agrees with the documentation as recorded. - Scribe Statement The provider has reviewed the documentation as recorded by the Scribe (Ally Laguerre) All medical record entries made by the Scribe were at my direction and personally dictated by me. I have reviewed the chart and agree that the record accurately reflects my personal performance of the history, physical exam, medical decision making, and the department course for this patient. I have also personally directed, reviewed, and agree with the discharge instructions and disposition.
[2017-11-12] MEDS ORDERED: Albuterol-Ipratrop 3 mg / 0.5 (3 ml) UD IH STA ×3 (10:55→11:39)
[2017-11-12 11:16] LABS: BASO # 0.1 K/uL (0.0-0.2); BASO % 1.5 % (0.0-2.0); EOS # 0.6 K/uL (0.0-0.7); EOS % 9.9 % (0.0-4.0); HEMOGLOBIN 14.3 g/dL (11.0-16.0); LYMPH # 1.4 K/uL (1.0-4.3); LYMPH % 24.5 % (20.0-40.0); MEAN CELL VOLUME 79.9 fL (81.0-99.0); MEAN PLATELET VOLUME 7.6 fL (7.2-11.7); MONO # 0.4 K/uL (0.0-0.8); MONO % 6.4 % (0.0-10.0); NEUT # 3.4 K/uL (1.8-7.0); NEUT % 57.7 % (50.0-75.0); NRBC % 1.2 % (0.0-2.0); RBC 5.12 Mil/uL (3.80-5.20); RED CELL DISTRIBUTION WIDTH 13.8 % (11.5-14.5); WHITE BLOOD COUNT 5.9 K/uL (4.8-10.8)
[2017-11-12] MEDS ORDERED: Albuterol-Ipratrop 3 mg / 0.5 (3 ml) UD ONE ×2 (11:17→11:23)
[2017-11-12 11:30] LABS: BLOOD UREA NITROGEN 18 mg/dL (7-17); CALCIUM 9.1 mg/dl (8.6-10.4); GFR AFRICAN-AMERICAN > 60; GFR NON-AFRICAN AMERICAN 56
[2017-11-12 11:35] LABS: SQUAMOUS EPITHIAL 7 /hpf (0-5); URINE BILIRUBIN NEGATIVE (NEGATIVE); URINE BLOOD NEGATIVE (NEGATIVE); URINE CLARITY Hazy (Clear); URINE COLOR Yellow (YELLOW); URINE GLUCOSE (UA) NORMAL (Normal); URINE LEUKOCYTE ESTERASE NEG Leu/uL (Negative); URINE PROTEIN NEGATIVE (NEGATIVE); URINE UROBILINOGEN NORMAL mg/dL (0.2-1.0)
[2017-11-12 11:37] LABS: HCG,QUALITATIVE URINE NEGATIVE (NEGATIVE)
--- NOTE | 2017-11-12 12:10 | RAD ---
HISTORY: SOB COMPARISON: 10/17/2016 TECHNIQUE: Chest PA and lateral FINDINGS: LUNGS: No active pulmonary disease. PLEURA: No significant pleural effusion identified. No pneumothorax apparent. CARDIOVASCULAR: Normal. OSSEOUS STRUCTURES: No significant abnormalities. VISUALIZED UPPER ABDOMEN: Normal. OTHER FINDINGS: None. IMPRESSION: No active disease.
[2017-11-12 13:29] VITALS: BP 129/86; PULSE 72; TEMP 98.4
[2017-11-12 13:46] VITALS: RESP 16
[2017-11-12 15:00] VITALS: O2SAT 97
--- NOTE | 2017-11-13 10:27 | CARD ---
APPROVED REPORT EKG Measurement Heart [id number] 108P [id number] <Conclusion> Sinus rhythm with short WY Left ventricular hypertrophy with QRS widening and repolarization abnormality Abnormal ECG
== END 2017-11-12 13:44 | disposition home or self-care (01) ==
LOC: C.ER 10:24
DX: J45.901 Unspecified asthma with (acute) exacerbation (principal)
CPT/HCPCS: 71046; 80048; 81001; 84703; 85025; 93005; 94640; 96374; 99285; J2930

== ENCOUNTER 2018-04-23 00:15 | Emergency (ER) | payer MEDICAID ==
[2018-04-23 00:16] VITALS: BMI 31.8
[2018-04-23 00:54] VITALS: O2SAT 98
[2018-04-23 01:05] LABS: BASO % 0.8 % (0.0-2.0); EOS # 0.2 K/uL (0.0-0.7); EOS % 3.1 % (0.0-4.0); HEMOGLOBIN 12.5 g/dL (11.0-16.0); LYMPH # 1.8 K/uL (1.0-4.3); LYMPH % 32.8 % (20.0-40.0); MEAN CELL VOLUME 82.3 fL (81.0-99.0); MEAN CORPUSCULAR HEMOGLOBIN 29.5 pg (27.0-31.0); MEAN CORPUSCULAR HGB CONC 35.8 g/dL (33.0-37.0); MEAN PLATELET VOLUME 7.5 fL (7.2-11.7); MONO # 0.4 K/uL (0.0-0.8); MONO % 6.7 % (0.0-10.0); NEUT # 3.1 K/uL (1.8-7.0); NEUT % 56.6 % (50.0-75.0); NRBC % 0.1 % (0.0-2.0); RBC 4.26 Mil/uL (3.80-5.20); RED CELL DISTRIBUTION WIDTH 13.5 % (11.5-14.5); WHITE BLOOD COUNT 5.5 K/uL (4.8-10.8)
[2018-04-23] MEDS ORDERED: Sodium Chloride 0.9% 1,000 ML IV ONE (01:09)
[2018-04-23 01:10] LABS: ALB/GLOB RATIO 1.6 (1.0-2.1); ALBUMIN 4.3 g/dL (3.5-5.0); ALT/SGPT 28 U/L (9-52); AST/SGOT 15 U/L (14-36); BLOOD UREA NITROGEN 23 mg/dL (7-17); CALCIUM 9.4 mg/dl (8.6-10.4); GFR NON-AFRICAN AMERICAN 56
[2018-04-23 01:17] LABS: PROTHROMBIN TIME 11.3 SECONDS (9.7-12.2)
[2018-04-23 01:24] LABS: HCG,QUALITATIVE URINE NEGATIVE (NEGATIVE)
[2018-04-23] MEDS ORDERED: Sodium Chloride 0.9% 1,000 ML ONE (01:25)
[2018-04-23 01:26] LABS: SQUAMOUS EPITHIAL 3 /hpf (0-5); URINE BACTERIA RARE (<OCC); URINE BILIRUBIN NEGATIVE (NEGATIVE); URINE BLOOD NEGATIVE (NEGATIVE); URINE CLARITY Clear (Clear); URINE COLOR Straw (YELLOW); URINE GLUCOSE (UA) NORMAL (Normal); URINE LEUKOCYTE ESTERASE NEG Leu/uL (Negative); URINE PROTEIN NEGATIVE (NEGATIVE); URINE UROBILINOGEN NORMAL mg/dL (0.2-1.0)
[2018-04-23 02:10] VITALS: BP 129/73; PULSE 72; RESP 18
[2018-04-23 02:19] VITALS: TEMP 98.5
--- NOTE | 2018-04-23 05:21 | C.PDOC ---
History Of Present Illness 37 year old female presents to the ED for evaluation of headache which began earlier this evening. Patient reports positive photophobia. She denies fever, chills, vision change, neck stiffness, chest pain, shortness of breath, and states that this is not the worst headache of her life. Chief Complaint (Nursing): Headache History Per: Patient History/Exam Limitations: no limitations Onset/Duration Of Symptoms: Hrs Current Symptoms Are (Timing): Still Present Quality: Aching Preceeding Symptoms: denies: Visual Disturbances Associated Symptoms: Photophobia. denies: Blurred Vision Additional History Per: Patient Past Medical History Reviewed: Historical Data, Nursing Documentation, Vital Signs Vital Signs: Last Vital Signs Temp 98.5 F 04/23/18 02:19 Pulse 72 04/23/18 02:09 Resp 18 04/23/18 02:09 BP 129/73 04/23/18 02:09 Pulse Ox 98 04/23/18 05:23 - Medical History PMH: Anemia, Asthma, Cardia Arrhythmia (Rjfsn-Lxujtodgw-Usaob syndrome) Denies: Chronic Kidney Disease Surgical History: No Surg Hx - [facility] Procedures EXTRACTION OF POC, LOW CERVICAL, OPEN APPROACH (12/10/15) TETANUS TOXOID ADMINIST (02/18/15) Family History: States: Unknown Family Hx - Social History Hx Tobacco Use: No Hx Alcohol Use: No Hx Substance Use: No - Immunization History Hx Tetanus Toxoid Vaccination: No Hx Influenza Vaccination: Yes (May 2016) Hx Pneumococcal Vaccination: No Review Of Systems Constitutional: Negative for: Fever, Chills Eyes: Positive for: Other (photophobia ). Negative for: Vision Change Cardiovascular: Negative for: Chest Pain Respiratory: Negative for: Shortness of Breath Neurological: Positive for: Headache Physical Exam - Physical Exam Appears: Non-toxic, No Acute Distress Skin: Normal Color, Warm, Dry Head: Atraumatic, Normacephalic Eye(s): bilateral: Normal Inspection Ear(s): Bilateral: Normal Oral Mucosa: Moist Neck: Normal ROM, Supple Chest: Symmetrical, No Deformity, No Tenderness Cardiovascular: Rhythm Regular, No Murmur Respiratory: Normal Breath Sounds, No Rales, No Rhonchi, No Wheezing Extremity: Normal ROM, Capillary Refill (less than 2 seconds ) Neurological/Psych: Oriented x3, Normal Speech, Normal Cognition ED Course And Treatment - Laboratory Results Result Diagrams: 04/23/18 01:02 04/23/18 01:02 ECG: Interpreted By Me, Viewed By Me ECG Rhythm: Sinus Rhythm ECG Interpretation: No Changes From Prior Rate From EC O2 Sat by Pulse Oximetry: 98 (on RA) Pulse Ox Interpretation: Normal - CT Scan/US CT Head Other Rad Studies (CT/US): Read By Radiologist, Radiology Report Reviewed CT/US Interpretation: EXAM: CT Head Without Intravenous Contrast. EXAM DATE/ TIME: 04/23/2018 1:09 AM. CLINICAL HISTORY: 37 years old, female; Pain; Headache; Headache not specified; Additional info: R/O ich. TECHNIQUE: Axial computed tomography images of the head/brain without intravenous contrast. All CT scans at this facility use at least one of these dose optimization techniques : automated. exposure control; mA and/or kV adjustment per patient size ( includes targeted exams where dose is. matched to clinical indication); or iterative reconstruction. Coronal and sagittal reformatted images were created and reviewed. COMPARISON: No relevant prior studies available. FINDINGS: Brain: Normal. No hemorrhage. No significant white matter disease. No edema. Ventricles: Normal. No ventriculomegaly. Bones/joints: Normal. No acute fracture. Sinuses: Normal as visualized. No acute sinusitis. Mastoid air cells : Normal as visualized. No mastoid effusion. Soft tissues: Normal. IMPRESSION : No acute intracranial findings. Medical Decision Making Medical Decision Making: Progress: Bloodwork, urinalysis, CT Head, EKG, ordered and reviewed. Reglan IVP and IV Fluids given. On re-examination, patient is resting comfortably and reports an improvement in her symptoms. Patient is stable for discharge. She is advised to f/u with her PMD within 1-2 days for further evaluation and/or return to the ED if symptoms return or worsen. Disposition - Disposition Referrals: Gaviota Gupta, [Non-Staff] - Disposition: HOME/ ROUTINE Disposition Time: 02:10 Condition: IMPROVED Additional Instructions: CORAL NARAYAN, thank you for letting us take care of you today. The emergency medical care you received today was directed at your acute symptoms. If you were prescribed any medication, please fill it and take as directed. It may take several days for your symptoms to resolve. Return to the Emergency Department if your symptoms worsen, do not improve, or if you have any other problems. Please contact your doctor or call one of the physicians/clinics you have been referred to that are listed on the Patient Visit Information form that is included in your discharge packet. Bring any paperwork you were given at discharge with you along with any medications you are taking to your follow up visit. Our treatment cannot replace ongoing medical care by a primary care provider outside of the emergency department. Thank you for allowing the [facility] team to be part of your care today. Follow up with your primary care doctor in 2-3 days for re-evaluation and further management. Prescriptions: Metoclopramide [Reglan] 10 mg PO Q8 PRN #15 tab PRN Reason: Migraine Headache Instructions: Migraine Headache (DC) Forms: [facility] ([place]ian) - Clinical Impression Clinical Impression: Migraine - Scribe Statement The provider has reviewed the documentation as recorded by the Scribe (Ally Laguerre) Provider Attestation: All medical record entries made by the Scribe were at my direction and personally dictated by me. I have reviewed the chart and agree that the record accurately reflects my personal performance of the history, physical exam, medical decision making, and the department course for this patient. I have also personally directed, reviewed, and agree with the discharge instructions and disposition.
--- NOTE | 2018-04-23 06:57 | CT ---
Date of service: 04/23/2018 PROCEDURE: CT HEAD WITHOUT CONTRAST. HISTORY: Headache. COMPARISON: None available. TECHNIQUE: Axial computed tomography images were obtained through the head/brain without intravenous contrast. Radiation dose: Total exam DLP = 856 mGy-cm. This CT exam was performed using one or more of the following dose reduction techniques: Automated exposure control, adjustment of the mA and/or kV according to patient size, and/or use of iterative reconstruction technique. FINDINGS: HEMORRHAGE: No intracranial hemorrhage. BRAIN: No mass effect or edema. No atrophy or chronic microvascular ischemic changes. VENTRICLES: Unremarkable. No hydrocephalus. CALVARIUM: Unremarkable. PARANASAL SINUSES: Unremarkable as visualized. No significant inflammatory changes. MASTOID AIR CELLS: Unremarkable as visualized. No inflammatory changes. OTHER FINDINGS: None. IMPRESSION: No acute intracranial abnormality. If symptoms persists, consider correlation with MRI. These findings were reported at 2:04 a.m. on 04/23/[address] Yesenia Dial from [facility].
--- NOTE | 2018-04-26 18:08 | CARD ---
APPROVED REPORT Date of service: 04/23/2018 EKG Measurement Heart [id number] ID [id number] <Conclusion> WPW Abnormal ECG
== END 2018-04-23 02:36 | disposition home or self-care (01) ==
LOC: C.ER 00:15
DX: G43.909 Migraine, unspecified, not intractable, without status migrainosus (principal)
CPT/HCPCS: 70450; 80053; 81001; 82948; 84484; 84703; 85025; 85610; 85730; 93005; 96361; 96374; 99285; J2765; J7030

== ENCOUNTER 2018-06-28 01:23 | Emergency (ER) | payer MEDICAID ==
[2018-06-28 01:23] VITALS: BMI 31.8
--- NOTE | 2018-06-28 02:00 | C.PDOC ---
History Of Present Illness 37 year old female presents to the ED c/o diffuse abdominal pain for the past 2 days. 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 Patient denies fever, chills, nausea, vomit, dysuria, hematuria, vaginal bleeding, vaginal discharge, back pain. Time Seen by Provider: 06/28/18 01:24 Chief Complaint (Nursing): Abdominal Pain History Per: Patient History/Exam Limitations: no limitations Onset/Duration Of Symptoms: Days (2) Current Symptoms Are (Timing): Still Present Location Of Pain/Discomfort: Diffuse Quality Of Discomfort: "Pain" Associated Symptoms: Diarrhea. denies: Nausea, Vomiting, Loss Of Appetite, Urinary Symptoms Exacerbating Factors: None Last Bowel Movement: Today Recent travel outside of the [place]: No Additional History Per: Patient Abnormal Vaginal Bleeding: No Past Medical History Reviewed: Historical Data, Nursing Documentation, Vital Signs Vital Signs: Last Vital Signs Temp 98 F 06/28/18 01:24 Pulse 79 06/28/18 01:24 Resp 20 06/28/18 01:24 BP 165/87 H 06/28/18 01:24 Pulse Ox 98 06/28/18 01:24 - Medical History PMH: Anemia, Asthma, Cardia Arrhythmia (Anklf-Pjurpsisp-Isqzw syndrome) Denies: Chronic Kidney Disease Surgical History: No Surg Hx - [facility] Procedures EXTRACTION OF POC, LOW CERVICAL, OPEN APPROACH (12/10/15) TETANUS TOXOID ADMINIST (02/18/15) Family History: States: Unknown Family Hx - Social History Hx Tobacco Use: No Hx Alcohol Use: No Hx Substance Use: No - Immunization History Hx Tetanus Toxoid Vaccination: No Hx Influenza Vaccination: Yes (May 2018) Hx Pneumococcal Vaccination: No Review Of Systems Constitutional: Negative for: Fever, Chills Cardiovascular: Negative for: Chest Pain Respiratory: Negative for: Shortness of Breath Gastrointestinal: Positive for: Abdominal Pain, Diarrhea. Negative for: Nausea, Vomiting Genitourinary: Negative for: Dysuria, Hematuria, Vaginal Discharge, Vaginal Bleeding Musculoskeletal: Negative for: Back Pain Physical Exam - Physical Exam Appears: Non-toxic, Other (mild uncomfortable ) Skin: Normal Color, Warm, Dry Head: Atraumatic, Normacephalic Eye(s): bilateral: Normal Inspection Oral Mucosa: Moist Neck: Normal ROM, Supple Chest: Symmetrical Cardiovascular: Rhythm Regular Respiratory: Normal Breath Sounds, No Rales, No Rhonchi, No Wheezing Gastrointestinal/Abdominal: Soft, Tenderness (mild diffuse), No Guarding, No Rebound, Other (Negative McBurney's, [place]. below umbilicus midline surgical scar) Extremity: Normal ROM, No Tenderness, No Swelling Neurological/Psych: Oriented x3, Normal Speech, Normal Cognition Gait: Steady ED Course And Treatment - Laboratory Results Result Diagrams: 06/28/18 02:13 06/28/18 02:13 O2 Sat by Pulse Oximetry: 98 (On RA) Pulse Ox Interpretation: Normal - Other Rad Obstructive Series X-Ray: Interpreted by Me, Viewed By Me Interpretation: no air fluid levels Progress Note: Plan: - Labs. - Obstructive series X-Ray. - IV fluids. - Toradol 30 mg IVP. - UA Disposition Counseled Patient/Family Regarding: Studies Performed, Diagnosis, Need For Followup, Rx Given - Disposition Referrals: Steven Isidro, [facility], [employer] [Advanced Practice Nurse] - Jorge A Garcia MD [Staff Provider] - Disposition: HOME/ ROUTINE Disposition Time: 04:15 Condition: STABLE Additional Instructions: FOLLOW UP WITH GI SPECIALIST WITHIN 1 WEEK USE MEDICATION DAILY RETURN TO ER IF SYMPTOMS WORSEN Prescriptions: Pantoprazole [Protonix EC Tab] 20 mg PO DAILY #30 ect Instructions: Acute Abdomen (Belly Pain), Adult (DC) Forms: [employer] (Ecuadorean) Print Language: GERMAN - Clinical Impression Clinical Impression: Abdominal pain - Scribe Statement The provider has reviewed the documentation as recorded by the Scribe Espinoza Ramon All medical record entries made by the Scribe were at my direction and personally dictated by me. I have reviewed the chart and agree that the record accurately reflects my personal performance of the history, physical exam, medical decision making, and the department course for this patient. I have also personally directed, reviewed, and agree with the discharge instructions and disposition.
[2018-06-28 02:10] LABS: HCG,QUALITATIVE URINE NEGATIVE (NEGATIVE)
[2018-06-28 02:15] LABS: SQUAMOUS EPITHIAL 3 /hpf (0-5); URINE BILIRUBIN NEGATIVE (NEGATIVE); URINE BLOOD NEGATIVE (NEGATIVE); URINE CLARITY Clear (Clear); URINE COLOR Yellow (YELLOW); URINE GLUCOSE (UA) NORMAL (Normal); URINE LEUKOCYTE ESTERASE NEG Leu/uL (Negative); URINE PROTEIN NEGATIVE (NEGATIVE); URINE UROBILINOGEN NORMAL mg/dL (0.2-1.0)
[2018-06-28 02:17] LABS: BASO # 0.1 K/uL (0.0-0.2); BASO % 1.3 % (0.0-2.0); EOS # 0.3 K/uL (0.0-0.7); EOS % 4.7 % (0.0-4.0); LYMPH # 1.7 K/uL (1.0-4.3); LYMPH % 28.4 % (20.0-40.0); MEAN CELL VOLUME 81.6 fL (81.0-99.0); MEAN CORPUSCULAR HEMOGLOBIN 29.3 pg (27.0-31.0); MEAN CORPUSCULAR HGB CONC 35.9 g/dL (33.0-37.0); MEAN PLATELET VOLUME 7.4 fL (7.2-11.7); MONO # 0.4 K/uL (0.0-0.8); MONO % 7.5 % (0.0-10.0); NEUT # 3.4 K/uL (1.8-7.0); NEUT % 58.1 % (50.0-75.0); NRBC % 0.1 % (0.0-2.0); RBC 4.45 Mil/uL (3.80-5.20); RED CELL DISTRIBUTION WIDTH 12.8 % (11.5-14.5); WHITE BLOOD COUNT 5.9 K/uL (4.8-10.8)
[2018-06-28 02:28] LABS: ALB/GLOB RATIO 1.5 (1.0-2.1); ALT/SGPT 17 U/L (9-52); AST/SGOT 13 U/L (14-36); BLOOD UREA NITROGEN 17 mg/dL (7-17); CALCIUM 8.8 mg/dl (8.6-10.4); GFR NON-AFRICAN AMERICAN > 60; LIPASE 127 U/L (23-300)
[2018-06-28] MEDS ORDERED: Sodium Chloride 0.9% 1,000 ML IV ONE (02:59)
[2018-06-28] MEDS ORDERED: Sodium Chloride 0.9% 1,000 ML ONE (03:07)
[2018-06-28] MEDS ORDERED: Pantoprazole 40 mg EC Tab PO STA (04:12)
[2018-06-28] MEDS ORDERED: Pantoprazole 40 mg EC Tab PO ONE (04:22)
[2018-06-28 04:27] VITALS: BP 137/74; PULSE 69; RESP 18; TEMP 97.7; O2SAT 97
--- NOTE | 2018-06-28 10:34 | RAD ---
Date of service: 06/28/2018 PROCEDURE: Radiographs of the chest and abdomen (obstructive series) HISTORY: abd pain, h/o abd surgery COMPARISON: None. TECHNIQUE: AP radiograph of the chest, with upright and supine radiographs of the abdomen. FINDINGS: CHEST: Heart size appears within normal limits. No focal consolidation, significant pleural effusion, or definite pneumothorax. Please note that chest x-ray has limited sensitivity for the detection of pulmonary masses. ABDOMEN AND PELVIS: Nonobstructive bowel gas pattern. No definite free air. No acute osseous abnormality is detected. IMPRESSION: Unremarkable radiographs of chest and abdomen. No evidence of mechanical bowel obstruction.
== END 2018-06-28 04:27 | disposition home or self-care (01) ==
LOC: C.ER 01:23
DX: R10.9 Unspecified abdominal pain (principal); D64.9 Anemia, unspecified; I49.9 Cardiac arrhythmia, unspecified
CPT/HCPCS: 74022; 80053; 81001; 83690; 84703; 85025; 96361; 96374; 99285; J1885; J7030

== ENCOUNTER 2018-09-04 22:52 | Observation (INO) | payer MEDICAID ==
[2018-09-04 22:53] VITALS: BMI 31.8
[2018-09-04 23:51] LABS: BASO # 0.1 K/uL (0.0-0.2); BASO % 1.2 % (0.0-2.0); EOS # 0.3 K/uL (0.0-0.7); EOS % 4.4 % (0.0-4.0); HEMOGLOBIN 12.9 g/dL (11.0-16.0); LYMPH # 1.6 K/uL (1.0-4.3); MEAN CORPUSCULAR HEMOGLOBIN 29.6 pg (27.0-31.0); MEAN CORPUSCULAR HGB CONC 35.7 g/dL (33.0-37.0); MEAN PLATELET VOLUME 7.4 fL (7.2-11.7); MONO # 0.4 K/uL (0.0-0.8); MONO % 6.2 % (0.0-10.0); NEUT # 3.7 K/uL (1.8-7.0); NEUT % 61.2 % (50.0-75.0); NRBC % 0.1 % (0.0-2.0); RBC 4.37 Mil/uL (3.80-5.20); RED CELL DISTRIBUTION WIDTH 13.2 % (11.5-14.5)
[2018-09-04 23:58] LABS: SQUAMOUS EPITHIAL 1 /hpf (0-5); URINE BILIRUBIN NEGATIVE (NEGATIVE); URINE BLOOD NEGATIVE (NEGATIVE); URINE CLARITY Clear (Clear); URINE COLOR Straw (YELLOW); URINE GLUCOSE (UA) NORMAL (Normal); URINE LEUKOCYTE ESTERASE NEG Leu/uL (Negative); URINE PROTEIN NEGATIVE (NEGATIVE); URINE UROBILINOGEN NORMAL mg/dL (0.2-1.0)
[2018-09-05] LABS: INR 1.1; PROTHROMBIN TIME 11.6 SECONDS (9.7-12.2)
[2018-09-05 00:03] LABS: HCG,QUALITATIVE URINE NEGATIVE (NEGATIVE)
[2018-09-05 00:11] LABS: BARBITURATES, UR NEGATIVE (NEGATIVE); BENZODIAZEPINES, UR NEGATIVE (NEGATIVE); OPIATES, UR NEGATIVE (NEGATIVE); PHENCYCLIDINE, UR NEGATIVE (NEGATIVE)
--- NOTE | 2018-09-05 00:24 | C.PDOC ---
History Of Present Illness 38 year old female with PMHx of Rdffs-Yhwgvdogo-Ydarw syndrome presents to the ED c/o chest pressure and headache that started this morning. Patient has been off Metropolol for over a year. Patient was last seen by her PMD 3 months ago. 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 Patient reports no recurrent SVT since then. Patient denies fever, chills, visual changes, SOB, palpitations, nausea, vomit, diarrhea, weakness, numbness. Time Seen by Provider: 09/04/18 23:15 Chief Complaint (Nursing): Chest Pain History Per: Patient History/Exam Limitations: no limitations Onset/Duration Of Symptoms: Hrs Current Symptoms Are (Timing): Still Present Quality: Tightness Recent travel outside of the [place]: No Additional History Per: Patient Past Medical History Reviewed: Historical Data, Nursing Documentation, Vital Signs Vital Signs: Last Vital Signs Temp 98.4 F 09/04/18 22:54 Pulse 92 H 09/04/18 22:54 Resp 22 09/04/18 22:54 BP 161/85 H 09/04/18 22:54 Pulse Ox 100 09/04/18 22:54 - Medical History PMH: Anemia, Asthma, Cardia Arrhythmia (Dpxyi-Vafigqurv-Ungsy syndrome) Denies: Chronic Kidney Disease Surgical History: No Surg Hx - [facility] Procedures EXTRACTION OF POC, LOW CERVICAL, OPEN APPROACH (12/10/15) TETANUS TOXOID ADMINIST (02/18/15) Family History: States: Unknown Family Hx - Social History Hx Tobacco Use: No Hx Alcohol Use: No Hx Substance Use: No - Immunization History Hx Tetanus Toxoid Vaccination: Yes Hx Influenza Vaccination: Yes Hx Pneumococcal Vaccination: No Review Of Systems Constitutional: Positive for: Other (denies weight gain). Negative for: Fever, Chills Eyes: Negative for: Vision Change Cardiovascular: Positive for: Chest Pain. Negative for: Palpitations Respiratory: Negative for: Cough, Shortness of Breath Gastrointestinal: Negative for: Nausea, Vomiting, Abdominal Pain Skin: Negative for: Rash Neurological: Positive for: Headache. Negative for: Weakness, Numbness, Dizziness Physical Exam - Physical Exam Appears: Non-toxic, In Acute Distress, Other (obese white female) Skin: Normal Color, Warm, Dry Head: Atraumatic, Normacephalic Eye(s): bilateral: Normal Inspection, PERRL, EOMI Oral Mucosa: Moist Neck: Normal ROM, Supple Chest: Symmetrical Cardiovascular: Rhythm Regular Respiratory: Normal Breath Sounds, No Rales, No Rhonchi, No Wheezing Gastrointestinal/Abdominal: Soft, No Tenderness, No Guarding, No Rebound Extremity: Normal ROM, No Tenderness, No Swelling Neurological/Psych: Oriented x3, Normal Speech, Normal Cognition Gait: Steady ED Course And Treatment - Laboratory Results Result Diagrams: 09/04/18 23:48 09/04/18 23:48 Lab Results: PT 11.6 SECONDS (9.7-12.2) 09/04/18 23:48 INR 1.1 09/04/18 23:48 APTT 34 SECONDS (21-34) 09/04/18 23:48 Urine Color Straw (YELLOW) 09/04/18 23:52 Urine Clarity Clear (Clear) 09/04/18 23:52 Urine pH 5.0 (5.0-8.0) 09/04/18 23:52 Ur Specific [place] 1.010 (1.003-1.030) 09/04/18 23:52 Urine Protein Negative mg/dL (NEGATIVE) 09/04/18 23:52 Urine Glucose (UA) Normal mg/dL (Normal) 09/04/18 23:52 Urine Ketones Negative mg/dL (NEGATIVE) 09/04/18 23:52 Urine Blood Negative (NEGATIVE) 09/04/18 23:52 Urine Nitrate Negative (NEGATIVE) 09/04/18 23:52 Urine Bilirubin Negative (NEGATIVE) 09/04/18 23:52 Urine Urobilinogen Normal mg/dL (0.2-1.0) 09/04/18 23:52 Ur Leukocyte Esterase Neg Rohan/uL (Negative) 09/04/18 23:52 Ur Squamous Epith Cells 1 /hpf (0-5) 09/04/18 23:52 Urine HCG, Qual Negative (NEGATIVE) 09/04/18 23:52 Urine HCG, Qual Negative (NEGATIVE) 09/04/18 23:52 Lab Interpretation: Normal (trop neg.) ECG: Interpreted By Me ECG Rhythm: Sinus Rhythm ECG Interpretation: Abnormal (c/w WPW, short CO and delta wave) Rate From EC O2 Sat by Pulse Oximetry: 100 (ON RA) Pulse Ox Interpretation: Normal Progress Note: CArdizem 30 mg PO Reevaluation Time: 00:51 Reassessment Condition: Improved (chest pressure resolved) Medical Decision Making Medical Decision Making: Plan: * EKG * Labs * CXR * Cardizem 30 mg PO * UA HTN underlying WPW, h/o same partial ablation for SVT and no further tachyarrhythmias thereafter Consult Prasanna- has evaled prior. Disposition Doctor Will See Patient In The: Hospital Counseled Patient/Family Regarding: Studies Performed, Diagnosis - Disposition Disposition: HOSPITALIZED Disposition Time: 00:52 Condition: GOOD Forms: [employer] ([place] Islander) - Clinical Impression Clinical Impression: Chest pressure - Scribe Statement The provider has reviewed the documentation as recorded by the Scribe Espinoza Ramon All medical record entries made by the Scribe were at my direction and personally dictated by me. I have reviewed the chart and agree that the record accurately reflects my personal performance of the history, physical exam, medical decision making, and the department course for this patient. I have also personally directed, reviewed, and agree with the discharge instructions and disposition.
[2018-09-05 00:35] LABS: ALB/GLOB RATIO 1.5 (1.0-2.1); ALBUMIN 4.2 g/dL (3.5-5.0); ALT/SGPT 26 U/L (9-52); AST/SGOT 16 U/L (14-36); BLOOD UREA NITROGEN 18 mg/dL (7-17); CALCIUM 8.8 mg/dl (8.6-10.4); GFR NON-AFRICAN AMERICAN 56
[2018-09-05 01:02] LABS: B-TYPE NATRIURETIC PEPTIDE 134 pg/mL (0-450)
[2018-09-05] MEDS ORDERED: Albuterol-Ipratrop 3 mg / 0.5 (3 ml) UD INH STA (01:14)
[2018-09-05] MEDS ORDERED: Albuterol-Ipratrop 3 mg / 0.5 (3 ml) UD ONE ×3 (01:15→11:51)
[2018-09-05] MEDS: Albuterol-Ipratrop 3 mg / 0.5 (3 ml) UD INH SCH ×3 (04:00→11:53)
[2018-09-05] MEDS ORDERED: Albuterol 0.083% Inhal Sol (2.5 mg/3 mL) UD ONE (06:34)
[2018-09-05 07:03] LABS: CK-MB 0.99 ng/mL (0.0-3.38)
--- NOTE | 2018-09-05 10:03 | RAD ---
Date of service: 09/05/2018 PROCEDURE: CHEST RADIOGRAPH, 1 VIEW HISTORY: SOB COMPARISON: 11/12/2017. FINDINGS: LUNGS: The lungs are well inflated and clear. PLEURA: No pneumothorax or pleural effusion. CARDIOVASCULAR: The heart is normal in size. No aortic atherosclerotic calcifications present. OSSEOUS STRUCTURES: Within normal limits for the patient's age. VISUALIZED UPPER ABDOMEN: Normal. OTHER FINDINGS: None. IMPRESSION: No active pulmonary disease.
[2018-09-05 12:26] LABS: CK-MB 0.83 ng/mL (0.0-3.38)
--- NOTE | 2018-09-05 14:03 | CP.PCM.CON ---
History of Present Illness - History of Present Illness History of Present Illness: 38 year old woman with a h/o WPW by Dr Bower. She had two partial ablations, the last one 5 years ago. She takes no CV meds, and has asthma. She had turkish food last night, did a lot of housework. Sometimes later, she developed sub sternal chest pressure, squeezing, that came and went. She came to the hospital, did not receive nitro. Sensation mostly subsided, but she has a little of it today. TNI are negative ECg by me wpw, short pr, nsr Not a diabetic, had a hysterectomy, but left ovaries Non smoker Review of Systems - Review of Systems All systems: reviewed and no additional remarkable complaints except (as above) Past Patient History - Infectious Disease Hx of Infectious Diseases: None - Past Medical History & Family History Past Medical History?: Yes - Past Social History Smoking Status: Never Smoked - CARDIAC Hx Cardia Arrhythmia: Yes (Atvls-Rtgrfzezc-Macpn syndrome) - PULMONARY Hx Asthma: Yes - NEUROLOGICAL Hx Neurological Disorder: No - HEENT Hx HEENT Problems: No - RENAL Hx Chronic Kidney Disease: No - ENDOCRINE/METABOLIC Hx Endocrine Disorders: No - HEMATOLOGICAL/ONCOLOGICAL Hx Anemia: Yes - INTEGUMENTARY Hx Dermatological Problems: No - MUSCULOSKELETAL/RHEUMATOLOGICAL Hx Musculoskeletal Disorders: Yes - GASTROINTESTINAL Hx Gastrointestinal Disorders: No - GENITOURINARY/GYNECOLOGICAL Hx Genitourinary Disorders: No - PSYCHIATRIC Hx Substance Use: No - SURGICAL HISTORY Hx Surgeries: Yes (SEE COMMENT) Hx Section: Yes Hx Dilation and Curettage: Yes Hx Hysterectomy: Yes Other/Comment: cone biopsy, cardiac ablation - ANESTHESIA Hx Anesthesia: Yes Hx Anesthesia Reactions: No Hx Malignant Hyperthermia: No Meds Allergies/Adverse Reactions: Allergies Allergy/AdvReac Type Severity Reaction Status Date / Time raspberry Allergy SWELLING Verified 09/04/18 23:04 strawberry Allergy RASH Verified 09/04/18 23:04 - Medications Medications: Current Medications Albuterol/Ipratropium (Duoneb 3 Mg/0.5 Mg (3 Ml) Ud) 3 ml INH RQ4 PJ Last Admin: 09/05/18 11:53 Dose: 3 ml Physical Exam - Constitutional Appears: Well - Head Exam Head Exam: NORMAL INSPECTION - Eye Exam Eye Exam: EOMI - ENT Exam ENT Exam: Mucous Membranes Moist - Neck Exam Neck exam: Positive for: Normal Inspection - Respiratory Exam Respiratory Exam: Clear to Auscultation Bilateral - Cardiovascular Exam Cardiovascular Exam: REGULAR RHYTHM - GI/Abdominal Exam GI & Abdominal Exam: Normal Bowel Sounds - Exam External exam: NORMAL EXTERNAL EXAM - Extremities Exam Extremities exam: Positive for: normal inspection - Back Exam Back exam: NORMAL INSPECTION - Neurological Exam Neurological exam: CN II-XII Intact, Oriented x3 - Psychiatric Exam Psychiatric exam: Normal Affect - Skin Skin Exam: Normal Color Results - Vital Signs Recent Vital Signs: Last Vital Signs Temp 98.4 F 09/05/18 05:30 Pulse 80 09/05/18 11:03 Resp 14 09/05/18 11:03 BP 141/91 H 09/05/18 11:03 Pulse Ox 95 09/05/18 11:03 - Labs Result Diagrams: 09/04/18 23:48 09/04/18 23:48 Labs: Laboratory Results - last 24 hr 09/04/18 09/04/18 09/04/18 23:48 23:48 23:48 WBC 6.0 RBC 4.37 Hgb 12.9 Hct 36.3 MCV 83.0 MCH 29.6 MCHC 35.7 RDW 13.2 Plt Count 184 MPV 7.4 Neut % (Auto) 61.2 Lymph % (Auto) 27.0 [place] % (Auto) 6.2 Eos % (Auto) 4.4 H Baso % (Auto) 1.2 Neut # (Auto) 3.7 Lymph # (Auto) 1.6 [place] # (Auto) 0.4 Eos # (Auto) 0.3 Baso # (Auto) 0.1 PT 11.6 INR 1.1 APTT 34 Sodium 137 Potassium 3.9 Chloride 104 Carbon Dioxide 25 Anion Gap 12 BUN 18 H Creatinine 1.1 Est GFR ( Amer) > 60 Est GFR (Non-Af Amer) 56 Random Glucose 111 H Calcium 8.8 Total Bilirubin 0.7 AST 16 ALT 26 Alkaline Phosphatase 46 Total Creatine Kinase CK-MB (Mass) Troponin I < 0.0120 NT-Pro-B Natriuret Pep 134 Total Protein 7.0 Albumin 4.2 Globulin 2.8 Albumin/Globulin Ratio 1.5 Urine Color Urine Clarity Urine pH Ur Specific [place] Urine Protein Urine Glucose (UA) Urine Ketones Urine Blood Urine Nitrate Urine Bilirubin Urine Urobilinogen Ur Leukocyte Esterase Ur Squamous Epith Cells Urine HCG, Qual Urine Opiates Screen Urine Methadone Screen Ur Barbiturates Screen Ur Phencyclidine Scrn Ur Amphetamines Screen U Benzodiazepines Scrn U Oth Cocaine Metabols U Cannabinoids Screen 09/04/18 09/04/18 09/05/18 23:52 23:52 06:33 WBC RBC Hgb Hct MCV MCH MCHC RDW Plt Count MPV Neut % (Auto) Lymph % (Auto) [place] % (Auto) Eos % (Auto) Baso % (Auto) Neut # (Auto) Lymph # (Auto) [place] # (Auto) Eos # (Auto) Baso # (Auto) PT INR APTT Sodium Potassium Chloride Carbon Dioxide Anion Gap BUN Creatinine Est GFR ( Amer) Est GFR (Non-Af Amer) Random Glucose Calcium Total Bilirubin AST ALT Alkaline Phosphatase Total Creatine Kinase 44 CK-MB (Mass) 0.99 Troponin I < 0.0120 NT-Pro-B Natriuret Pep Total Protein Albumin Globulin Albumin/Globulin Ratio Urine Color Straw Urine Clarity Clear Urine pH 5.0 Ur Specific [place] 1.010 Urine Protein Negative Urine Glucose (UA) Normal Urine Ketones Negative Urine Blood Negative Urine Nitrate Negative Urine Bilirubin Negative Urine Urobilinogen Normal Ur Leukocyte Esterase Neg Ur Squamous Epith Cells 1 Urine HCG, Qual Negative Urine Opiates Screen Negative Urine Methadone Screen Negative Ur Barbiturates Screen Negative Ur Phencyclidine Scrn Negative Ur Amphetamines Screen Negative U Benzodiazepines Scrn Negative U Oth Cocaine Metabols Negative U Cannabinoids Screen Negative 09/05/18 11:59 WBC RBC Hgb Hct MCV MCH MCHC RDW Plt Count MPV Neut % (Auto) Lymph % (Auto) [place] % (Auto) Eos % (Auto) Baso % (Auto) Neut # (Auto) Lymph # (Auto) [place] # (Auto) Eos # (Auto) Baso # (Auto) PT INR APTT Sodium Potassium Chloride Carbon Dioxide Anion Gap BUN Creatinine Est GFR ( Amer) Est GFR (Non-Af Amer) Random Glucose Calcium Total Bilirubin AST ALT Alkaline Phosphatase Total Creatine Kinase 42 CK-MB (Mass) 0.83 Troponin I < 0.0120 NT-Pro-B Natriuret Pep Total Protein Albumin Globulin Albumin/Globulin Ratio Urine Color Urine Clarity Urine pH Ur Specific [place] Urine Protein Urine Glucose (UA) Urine Ketones Urine Blood Urine Nitrate Urine Bilirubin Urine Urobilinogen Ur Leukocyte Esterase Ur Squamous Epith Cells Urine HCG, Qual Urine Opiates Screen Urine Methadone Screen Ur Barbiturates Screen Ur Phencyclidine Scrn Ur Amphetamines Screen U Benzodiazepines Scrn U Oth Cocaine Metabols U Cannabinoids Screen - EKG Data EKG Interpreted by: Myself (as above) Assessment & Plan - Assessment and Plan (Free Text) Assessment: 1. Rest chest pain, that lasted many many hours, and neg tni. ECG: not possible to interpret ischemia with WPW. Pt has a very low risk factor profile, and chest pain is likely non anginal. pt will be discharged. If symptoms persist, or if pt still has concerns, then a nuclear stress test with lexiscan can be performed.
--- NOTE | 2018-09-05 22:19 | CP.PCM.HP ---
Past Patient History - Infectious Disease Hx of Infectious Diseases: None - Past Medical History & Family History Past Medical History?: Yes - Past Social History Smoking Status: Never Smoked - CARDIAC Hx Cardia Arrhythmia: Yes (Kpljj-Exiqlqdtj-Ngsnk syndrome) - PULMONARY Hx Asthma: Yes - NEUROLOGICAL Hx Neurological Disorder: No - HEENT Hx HEENT Problems: No - RENAL Hx Chronic Kidney Disease: No - ENDOCRINE/METABOLIC Hx Endocrine Disorders: No - HEMATOLOGICAL/ONCOLOGICAL Hx Anemia: Yes - INTEGUMENTARY Hx Dermatological Problems: No - MUSCULOSKELETAL/RHEUMATOLOGICAL Hx Musculoskeletal Disorders: Yes - GASTROINTESTINAL Hx Gastrointestinal Disorders: No - GENITOURINARY/GYNECOLOGICAL Hx Genitourinary Disorders: No - PSYCHIATRIC Hx Substance Use: No - SURGICAL HISTORY Hx Surgeries: Yes (SEE COMMENT) Hx Section: Yes Hx Dilation and Curettage: Yes Hx Hysterectomy: Yes Other/Comment: cone biopsy, cardiac ablation - ANESTHESIA Hx Anesthesia: Yes Hx Anesthesia Reactions: No Hx Malignant Hyperthermia: No Meds Allergies/Adverse Reactions: Allergies Allergy/AdvReac Type Severity Reaction Status Date / Time raspberry Allergy SWELLING Verified 09/04/18 23:04 strawberry Allergy RASH Verified 09/04/18 23:04 Results - Vital Signs Recent Vital Signs: Last Vital Signs Temp 98.4 F 09/05/18 05:30 Pulse 71 09/05/18 16:17 Resp 15 09/05/18 16:17 BP 147/89 09/05/18 16:17 Pulse Ox 95 09/05/18 16:17 - Labs Result Diagrams: 09/04/18 23:48 09/04/18 23:48 Labs: Laboratory Results - last 24 hr 09/04/18 09/04/18 09/04/18 23:48 23:48 23:48 WBC 6.0 RBC 4.37 Hgb 12.9 Hct 36.3 MCV 83.0 MCH 29.6 MCHC 35.7 RDW 13.2 Plt Count 184 MPV 7.4 Neut % (Auto) 61.2 Lymph % (Auto) 27.0 [place] % (Auto) 6.2 Eos % (Auto) 4.4 H Baso % (Auto) 1.2 Neut # (Auto) 3.7 Lymph # (Auto) 1.6 [place] # (Auto) 0.4 Eos # (Auto) 0.3 Baso # (Auto) 0.1 PT 11.6 INR 1.1 APTT 34 Sodium 137 Potassium 3.9 Chloride 104 Carbon Dioxide 25 Anion Gap 12 BUN 18 H Creatinine 1.1 Est GFR ( Amer) > 60 Est GFR (Non-Af Amer) 56 Random Glucose 111 H Calcium 8.8 Total Bilirubin 0.7 AST 16 ALT 26 Alkaline Phosphatase 46 Total Creatine Kinase CK-MB (Mass) Troponin I < 0.0120 NT-Pro-B Natriuret Pep 134 Total Protein 7.0 Albumin 4.2 Globulin 2.8 Albumin/Globulin Ratio 1.5 Urine Color Urine Clarity Urine pH Ur Specific [place] Urine Protein Urine Glucose (UA) Urine Ketones Urine Blood Urine Nitrate Urine Bilirubin Urine Urobilinogen Ur Leukocyte Esterase Ur Squamous Epith Cells Urine HCG, Qual Urine Opiates Screen Urine Methadone Screen Ur Barbiturates Screen Ur Phencyclidine Scrn Ur Amphetamines Screen U Benzodiazepines Scrn U Oth Cocaine Metabols U Cannabinoids Screen 09/04/18 09/04/18 09/05/18 23:52 23:52 06:33 WBC RBC Hgb Hct MCV MCH MCHC RDW Plt Count MPV Neut % (Auto) Lymph % (Auto) [place] % (Auto) Eos % (Auto) Baso % (Auto) Neut # (Auto) Lymph # (Auto) [place] # (Auto) Eos # (Auto) Baso # (Auto) PT INR APTT Sodium Potassium Chloride Carbon Dioxide Anion Gap BUN Creatinine Est GFR ( Amer) Est GFR (Non-Af Amer) Random Glucose Calcium Total Bilirubin AST ALT Alkaline Phosphatase Total Creatine Kinase 44 CK-MB (Mass) 0.99 Troponin I < 0.0120 NT-Pro-B Natriuret Pep Total Protein Albumin Globulin Albumin/Globulin Ratio Urine Color Straw Urine Clarity Clear Urine pH 5.0 Ur Specific [place] 1.010 Urine Protein Negative Urine Glucose (UA) Normal Urine Ketones Negative Urine Blood Negative Urine Nitrate Negative Urine Bilirubin Negative Urine Urobilinogen Normal Ur Leukocyte Esterase Neg Ur Squamous Epith Cells 1 Urine HCG, Qual Negative Urine Opiates Screen Negative Urine Methadone Screen Negative Ur Barbiturates Screen Negative Ur Phencyclidine Scrn Negative Ur Amphetamines Screen Negative U Benzodiazepines Scrn Negative U Oth Cocaine Metabols Negative U Cannabinoids Screen Negative 09/05/18 11:59 WBC RBC Hgb Hct MCV MCH MCHC RDW Plt Count MPV Neut % (Auto) Lymph % (Auto) [place] % (Auto) Eos % (Auto) Baso % (Auto) Neut # (Auto) Lymph # (Auto) [place] # (Auto) Eos # (Auto) Baso # (Auto) PT INR APTT Sodium Potassium Chloride Carbon Dioxide Anion Gap BUN Creatinine Est GFR ( Amer) Est GFR (Non-Af Amer) Random Glucose Calcium Total Bilirubin AST ALT Alkaline Phosphatase Total Creatine Kinase 42 CK-MB (Mass) 0.83 Troponin I < 0.0120 NT-Pro-B Natriuret Pep Total Protein Albumin Globulin Albumin/Globulin Ratio Urine Color Urine Clarity Urine pH Ur Specific [place] Urine Protein Urine Glucose (UA) Urine Ketones Urine Blood Urine Nitrate Urine Bilirubin Urine Urobilinogen Ur Leukocyte Esterase Ur Squamous Epith Cells Urine HCG, Qual Urine Opiates Screen Urine Methadone Screen Ur Barbiturates Screen Ur Phencyclidine Scrn Ur Amphetamines Screen U Benzodiazepines Scrn U Oth Cocaine Metabols U Cannabinoids Screen
[2018-09-05 22:40] VITALS: BP 140/80; PULSE 74; RESP 18; TEMP 97.8; O2SAT 96
--- NOTE | 2018-09-06 10:59 | HP ---
CHIEF COMPLAINT: Chest pain. 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 About 15 years ago and then 4 years ago, she developed cardiac arrhythmia and she underwent 2 ablations, and after the ablation the patient did well and the patient has multiple medical problems and she is on medications for that. The patient does not have any other medical problem and she is not on any medications. She is being followed up by her Cardiology and the patient on the day of admission ate something and after that she developed left precordial chest pain, nonradiating, not associated to diaphoresis, dizziness, but she had some discomfort; however, she has bloating, inability to and she denies any history of dizziness, vertigo, chest pain, and palpitation. She has chest pain. She denies any polyuria, polydipsia, polyphagia. She denies any hematuria or polyuria. She denies any sneezing, itchy eyes, itchy nose. There is no history of trauma, fall, or loss of consciousness. PAST MEDICAL HISTORY: Nbrra-Zykyapgom-Tkfea Syndrome. SOCIAL HISTORY: Nonsmoker. Non-EtOH user. CURRENT MEDICATIONS: Unknown. ALLERGIES: RASPBERRY AND STRAWBERRY. PHYSICAL EXAMINATION: GENERAL: A middle-aged young female in no acute distress. VITAL SIGNS: Blood pressure 147/89, pulse 71, respiratory rate 15, and temperature 97.8. SKIN: No rashes. No bruises. No purpura. HEENT: Atraumatic and normocephalic. Negative pallor. Negative jaundice. Extraocular movements are intact. NECK: Supple. No JVD. No lymph node. No thyromegaly. CHEST: Chest wall, bilateral symmetrical expansion. No tenderness. LUNGS: Clear. No rales or rhonchi. CARDIOVASCULAR SYSTEM: PMI not localized. S1 and S2 regular. No heaves noted. ABDOMEN: Soft and nontender. Bowel sounds are positive. RECTAL: Refused. PELVIC: Refused. EXTREMITIES: No clubbing, cyanosis, or edema. CENTRAL NERVOUS SYSTEM: Awake, alert, and oriented x 3. ASSESSMENT: 1. Chest pain, myocardial infarction was ruled out most likely the patient has gastroesophageal reflux disease symptoms. 2. Elevated liver function tests. PLAN: Discharge the patient and outpatient followup. CONDITION UPON DISCHARGE: Stable. Khris Hawthorne MD
--- NOTE | 2018-09-06 14:56 | CARD ---
APPROVED REPORT Date of service: 09/04/2018 EKG Measurement Heart [id number] NH 102P [id number] <Conclusion> Sinus rhythm with short NH. Abnormal ECG
[2018-09-07] MEDS ORDERED: Pneumococcal 23-Valent Vaccine IM ONE (16:56)
== END 2018-09-05 21:05 | disposition home or self-care (01) ==
LOC: C.ER 22:52 → INTOOBSV 09-05 00:54 → C.9E 09-05 00:54 → C.6T 09-05 16:06
PROVIDERS: ADMIT Internal Medicine; ATTEND Internal Medicine
DX: R07.89 Other chest pain (principal); E11.9 Type 2 diabetes mellitus without complications; E78.5 Hyperlipidemia, unspecified; I10 Essential (primary) hypertension; I47.1 Supraventricular tachycardia; J45.909 Unspecified asthma, uncomplicated; I45.6 Pre-excitation syndrome
CPT/HCPCS: 36415; 71045; 80053; 80324; 80345; 80346; 80349; 80353; 80358; 80361; 81001; 83880; 83992; 84484; 84703; 85025; 85610; 85730; 93005; 99285; G0378

== ENCOUNTER 2018-10-06 12:45 | Emergency (ER) | payer MEDICAID ==
[2018-10-06 12:46] VITALS: BMI 31.8
[2018-10-06 13:21] VITALS: BP 164/98; PULSE 69; RESP 20; TEMP 98.5; O2SAT 97
[2018-10-06] MEDS ORDERED: Dexamethasone 4 mg/1 ml IM STA (13:54)
--- NOTE | 2018-10-06 14:09 | C.PDOC ---
History Of Present Illness 38 y/o female presents to the ED complaining low back pain for the past 4 days and pain radiates down the legs. Patient states yesterday she awake with significantly worse pain, and she had increased difficulty standing upright and when bending over. Reports she took Motrin with minimal relief yesterday. Today patient awoke with even more pain, prompting her to come to the ED. She denies any numbness, tingling, extremity weakness, dysuria, abdominal pain, or incontinence of bowel or bladder. Denies recent heavy lifting, blunt trauma, or fall. 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 She admits to having similar back pain in the past, and was diagnosed with degenerative disc disease. Time Seen by Provider: 10/06/18 13:18 Chief Complaint (Nursing): Back Pain History Per: Patient History/Exam Limitations: no limitations Onset/Duration Of Symptoms: Days (2) Current Symptoms Are (Timing): Worse Quality Of Discomfort: "Pain" Previous Symptoms: Back Pain Associated Symptoms: None Exacerbating Factor(s): Movement, Standing Past Medical History Reviewed: Historical Data, Nursing Documentation, Vital Signs Vital Signs: Last Vital Signs Temp 98.5 F 10/06/18 13:17 Pulse 69 10/06/18 13:17 Resp 20 10/06/18 13:17 BP 164/98 H 10/06/18 13:17 Pulse Ox 97 10/06/18 13:17 - Medical History PMH: Anemia, Asthma, Back Problems (degenerative disc disease), Cardia Arrhythmia (Egbhe-Oiiakpnyh-Ugmwq syndrome) Denies: Chronic Kidney Disease Other Surgeries: Hysterectomy - [facility] Procedures EXTRACTION OF POC, LOW CERVICAL, OPEN APPROACH (12/10/15) TETANUS TOXOID ADMINIST (02/18/15) Family History: States: Unknown Family Hx - Social History Hx Tobacco Use: No Hx Alcohol Use: No Hx Substance Use: No - Immunization History Hx Tetanus Toxoid Vaccination: Yes Hx Influenza Vaccination: Yes Hx Pneumococcal Vaccination: No Review Of Systems Except As Marked, All Systems Reviewed And Found Negative. Constitutional: Negative for: Fever, Chills Gastrointestinal: Negative for: Abdominal Pain Genitourinary: Negative for: Dysuria, Frequency, Incontinence Musculoskeletal: Positive for: Back Pain (radiating down B/L legs). Negative for: Neck Pain Skin: Negative for: Rash, Lesions Neurological: Negative for: Weakness, Numbness Physical Exam - Physical Exam Appears: Non-toxic, No Acute Distress Skin: Warm, Dry Head: Atraumatic, Normacephalic Eye(s): bilateral: Normal Inspection, PERRL, EOMI Oral Mucosa: Moist Neck: Normal ROM, Supple Chest: Symmetrical Respiratory: No Accessory Muscle Use, Other (no respiratory distress, speaking in full sentences) Gastrointestinal/Abdominal: Soft, No Tenderness, No Distention Back: No Vertebral Tenderness, Muscle Spasm (paralumbar), Paraspinal Tenderness (bilateral paralumbar tenderness), Other (Pain with standing upright) Extremity: Bilateral: Atraumatic, Normal Color And Temperature, Normal ROM Pulses: Left Dorsalis Pedis: Normal, Right Dorsalis Pedis: Normal Neurological/Psych: Oriented x3, Normal Motor, Normal Sensation ED Course And Treatment - Laboratory Results Urine POC: Negative O2 Sat by Pulse Oximetry: 97 (RA) Pulse Ox Interpretation: Normal - Other Rad LS Spine XR X-Ray: Read By Radiologist Medical Decision Making Medical Decision Making: Impression: Lumbar spasm Initial Plan: - Urinalysis - Urine culture - LS spine x-ray - 5 mg PO valium - 30 mg IM Toradol - 10 mg IM Decadron On re-exam, the patient reports improvement of symptoms. Lungs are CTA, heart is RRR, abdomen is soft, non-tender and tolerating PO well. Pt is ambulatory in the ED with steady gait. Follow up with the medical doctor within 1-2 days. Return if worsened. Disposition - Disposition Referrals: Steven Neumann MD [Non-Staff] - Disposition: HOME/ ROUTINE Disposition Time: 15:17 Condition: GOOD Additional Instructions: Follow up with the medical doctor within 1-2 days. Return if worsened. 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 - Scribe Statement The provider has reviewed the documentation as recorded by the Nghia Bolden All medical record entries made by the Scribe were at my direction and personally dictated by me. I have reviewed the chart and agree that the record accurately reflects my personal performance of the history, physical exam, medical decision making, and the department course for this patient. I have also personally directed, reviewed, and agree with the discharge instructions and disposition.
--- NOTE | 2018-10-06 14:20 | RAD ---
Date of service: 10/06/2018 PROCEDURE: Radiographs of the Lumbar Spine. HISTORY: low back pain COMPARISON: No prior. FINDINGS: BONES: Normal lumbar curvature without fracture or spondylolisthesis. Mild spondylosis seen at is the L1-2 level. L5 appears transitional, somewhat sacralized with a small L5-S1 disc interspace. No destructive bony lesion appreciable. DISC SPACES: Diminished L4-5 disc interspace with L5-S1 also diminished due to sacralization of L5. OTHER FINDINGS: None. IMPRESSION: No fracture or spondylolisthesis identified. Transitional L5 vertebral body. Limited spondylosis L1-2 indicating degenerative disease.
[2018-10-06 14:38] LABS: SQUAMOUS EPITHIAL 3 /hpf (0-5); URINE BILIRUBIN NEGATIVE (NEGATIVE); URINE BLOOD NEGATIVE (NEGATIVE); URINE CLARITY Hazy (Clear); URINE COLOR Yellow (YELLOW); URINE GLUCOSE (UA) NORMAL (Normal); URINE LEUKOCYTE ESTERASE NEG Leu/uL (Negative); URINE PROTEIN NEGATIVE (NEGATIVE); URINE UROBILINOGEN NORMAL mg/dL (0.2-1.0)
== END 2018-10-06 15:33 | disposition home or self-care (01) ==
LOC: C.ER 12:45
DX: M54.30 Sciatica, unspecified side (principal); S39.012A Strain of muscle, fascia and tendon of lower back, initial encounter; X58.XXXA Exposure to other specified factors, initial encounter
CPT/HCPCS: 72100; 81001; 81025; 87086; 96372; 99283; J1100; J1885

== ENCOUNTER 2018-11-04 09:12 | Emergency (ER) | payer MEDICAID ==
[2018-11-04 09:38] VITALS: BMI 32.8
[2018-11-04] MEDS ORDERED: Sodium Chloride 0.9% 1,000 ML IV ONE (09:51)
[2018-11-04] MEDS ORDERED: Sodium Chloride 0.9% 1,000 ML ONE (10:10)
[2018-11-04 10:22] LABS: BASO % 0.4 % (0.0-2.0); EOS % 0.6 % (0.0-4.0); HEMOGLOBIN 13.2 g/dL (11.0-16.0); LYMPH # 0.6 K/uL (1.0-4.3); LYMPH % 8.1 % (20.0-40.0); MEAN CELL VOLUME 84.3 fL (81.0-99.0); MEAN CORPUSCULAR HEMOGLOBIN 29.2 pg (27.0-31.0); MEAN CORPUSCULAR HGB CONC 34.7 g/dL (33.0-37.0); MEAN PLATELET VOLUME 7.7 fL (7.2-11.7); MONO # 0.3 K/uL (0.0-0.8); MONO % 4.6 % (0.0-10.0); NEUT # 6.2 K/uL (1.8-7.0); NEUT % 86.3 % (50.0-75.0); PLATELET COUNT 171 K/uL (130-400); RBC 4.51 Mil/uL (3.80-5.20); RED CELL DISTRIBUTION WIDTH 13.3 % (11.5-14.5); WHITE BLOOD COUNT 7.2 K/uL (4.8-10.8)
--- NOTE | 2018-11-04 10:25 | C.PDOC ---
History Of Present Illness 38 year old female with complaint of vomiting, diarrhea, and body aches since 4 am. Patient states that she has had multiple episodes of vomiting. Patient states that she went to work and then decided to come for evaluation. Patient has a PMHx of WPW syndrome, , and cardiac ablations. Patient denies fever, runny nose, nasal congestion, chills, and diaphoresis. Time Seen by Provider: 11/04/18 09:41 Chief Complaint (Nursing): Abdominal Pain History Per: Patient History/Exam Limitations: no limitations Onset/Duration Of Symptoms: Hrs (6) Current Symptoms Are (Timing): Still Present Radiation Of Pain To:: None Associated Symptoms: Vomiting, Diarrhea. denies: Fever, Chills Exacerbating Factors: None Alleviating Factors: None Past Medical History Reviewed: Historical Data, Nursing Documentation, Vital Signs Vital Signs: Last Vital Signs Temp 99.0 F 11/04/18 09:37 Pulse 98 H 11/04/18 09:37 Resp 18 11/04/18 09:37 BP 136/84 11/04/18 09:37 Pulse Ox 99 11/04/18 09:37 - Medical History PMH: Anemia, Asthma, Back Problems (degenerative disc disease), Cardia Arrhythmia (Kpths-Kvavwjlsk-Rerjy syndrome) Denies: Chronic Kidney Disease Surgical History: No Surg Hx - [facility] Procedures EXTRACTION OF POC, LOW CERVICAL, OPEN APPROACH (12/10/15) TETANUS TOXOID ADMINIST (02/18/15) Family History: States: Unknown Family Hx - Social History Hx Tobacco Use: No Hx Alcohol Use: No Hx Substance Use: No - Immunization History Hx Tetanus Toxoid Vaccination: Yes Hx Influenza Vaccination: No Hx Pneumococcal Vaccination: No Review Of Systems Constitutional: Positive for: Malaise. Negative for: Fever, Chills, Sweats, Weakness ENT: Negative for: Nose Discharge, Nose Congestion, Throat Pain Respiratory: Negative for: Cough, Sputum Gastrointestinal: Positive for: Vomiting, Diarrhea Neurological: Negative for: Weakness, Numbness, Dizziness Physical Exam - Physical Exam Appears: Non-toxic, No Acute Distress Skin: Normal Color, Warm, Dry Head: Atraumatic, Normacephalic ED Course And Treatment O2 Sat by Pulse Oximetry: 99 Disposition - Disposition
--- NOTE | 2018-11-04 10:33 | C.PDOC ---
History Of Present Illness 38 year old female with complaint of vomiting, diarrhea, and body aches since 4 am. Patient states that she has had multiple episodes of vomiting. Patient states that she went to work and then decided to come for evaluation. Patient has a PMHx of WPW syndrome, , and cardiac ablations. Patient denies fever, runny nose, nasal congestion, chills, and diaphoresis. Time Seen by Provider: 11/04/18 09:41 Chief Complaint (Nursing): Abdominal Pain History Per: Patient History/Exam Limitations: no limitations Onset/Duration Of Symptoms: Hrs (6) Current Symptoms Are (Timing): Still Present Radiation Of Pain To:: None Associated Symptoms: Vomiting, Diarrhea. denies: Fever, Chills Exacerbating Factors: None Alleviating Factors: None Past Medical History Reviewed: Historical Data, Nursing Documentation, Vital Signs Vital Signs: Last Vital Signs Temp 99.0 F 11/04/18 09:37 Pulse 98 H 11/04/18 09:37 Resp 18 11/04/18 09:37 BP 136/84 11/04/18 09:37 Pulse Ox 99 11/04/18 09:37 - Medical History PMH: Anemia, Asthma, Back Problems (degenerative disc disease), Cardia Arrhythmia (Riezn-Lmstjcxxc-Qbsik syndrome) Denies: Chronic Kidney Disease Surgical History: Other Surgeries: Cardiac ablation - [facility] Procedures EXTRACTION OF POC, LOW CERVICAL, OPEN APPROACH (12/10/15) TETANUS TOXOID ADMINIST (02/18/15) Family History: States: Unknown Family Hx - Social History Hx Tobacco Use: No Hx Alcohol Use: No Hx Substance Use: No - Immunization History Hx Tetanus Toxoid Vaccination: Yes Hx Influenza Vaccination: No Hx Pneumococcal Vaccination: No Review Of Systems Constitutional: Positive for: Malaise. Negative for: Fever, Chills, Weakness ENT: Negative for: Nose Discharge, Nose Congestion, Throat Pain Respiratory: Negative for: Cough Gastrointestinal: Positive for: Vomiting, Diarrhea Neurological: Positive for: Weakness, Numbness, Dizziness Physical Exam - Physical Exam Appears: Well, Non-toxic, No Acute Distress Skin: Normal Color, Warm, Dry Head: Atraumatic, Normacephalic Throat: Normal, No Erythema, No Exudate Neck: Normal ROM, Supple Chest: Symmetrical, No Deformity Cardiovascular: Rhythm Regular, No Murmur Respiratory: No Accessory Muscle Use, No Rales, No Rhonchi, No Wheezing Gastrointestinal/Abdominal: Soft, No Tenderness Extremity: Bilateral: Atraumatic, Normal Color And Temperature, Normal ROM Neurological/Psych: Oriented x3, Normal Speech, Normal Cognition ED Course And Treatment - Laboratory Results Result Diagrams: 11/04/18 10:16 11/04/18 10:16 Lab Interpretation: Normal Urine POC: Negative O2 Sat by Pulse Oximetry: 99 (in RA) Pulse Ox Interpretation: Normal Progress Note: Treated with IVF NSS and zofran. On re-evaluation feeling better, abdomen soft non-tender. In no distress Reassessment Condition: Improved Medical Decision Making Medical Decision Making: Impression: 38 year old female with complaint of vomiting , diarrhea, and bodyaches Plan: Labs ordered with flu a/b and UA Zofran IVP IV fluids Disposition Counseled Patient/Family Regarding: Studies Performed, Diagnosis, Need For Followup, Rx Given - Disposition Referrals: Steven Isidro, [facility], [facility] [employer] [Advanced Practice Nurse] - Disposition: HOME/ ROUTINE Disposition Time: 11:30 Condition: STABLE Prescriptions: Ondansetron ODT [Zofran ODT] 1 odt PO BID PRN #6 odt PRN Reason: Nausea/Vomiting Instructions: Viral Gastroenteritis Forms: [facility] (Mauritanian), Work Excuse - POA Present On Arrival: None - Clinical Impression Clinical Impression: Gastroenteritis - 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 (Kaitlyn Fernando) - Scribe Statement The provider has reviewed the documentation as recorded by the Scribe (Kaitlyn Fernando) All medical record entries made by the Scribe were at my direction and personally dictated by me. I have reviewed the chart and agree that the record accurately reflects my personal performance of the history, physical exam, medical decision making, and the department course for this patient. I have also personally directed, reviewed, and agree with the discharge instructions and disposition.
[2018-11-04 10:44] LABS: ALB/GLOB RATIO 1.5 (1.0-2.1); ALBUMIN 4.1 g/dL (3.5-5.0); ALT/SGPT 18 U/L (9-52); AST/SGOT 21 U/L (14-36); BLOOD UREA NITROGEN 16 mg/dL (7-17); CALCIUM 8.5 mg/dl (8.6-10.4); GFR NON-AFRICAN AMERICAN > 60
[2018-11-04 10:48] LABS: LYMPHOCYTE 12 % (20-40); MONOCYTE 4 % (0-10); NEUTROPHIL 84 % (50-75); TOTAL CELLS COUNTED 100
[2018-11-04 10:51] LABS: PLATELET ESTIMATE NORMAL (NORMAL)
[2018-11-04 11:11] LABS: SQUAMOUS EPITHIAL 2 /hpf (0-5); URINE BILIRUBIN NEGATIVE (NEGATIVE); URINE BLOOD NEGATIVE (NEGATIVE); URINE CLARITY Clear (Clear); URINE COLOR Yellow (YELLOW); URINE GLUCOSE (UA) NORMAL (Normal); URINE LEUKOCYTE ESTERASE NEG Leu/uL (Negative); URINE PROTEIN NEGATIVE (NEGATIVE); URINE UROBILINOGEN NORMAL mg/dL (0.2-1.0)
[2018-11-04 11:20] LABS: HCG,QUALITATIVE URINE NEGATIVE (NEGATIVE)
[2018-11-04 12:08] VITALS: BP 148/70; PULSE 91; RESP 16; TEMP 99.5
[2018-11-04 17:16] VITALS: O2SAT 99
== END 2018-11-04 12:11 | disposition home or self-care (01) ==
LOC: C.ER 09:12
DX: K52.9 Noninfective gastroenteritis and colitis, unspecified (principal)
CPT/HCPCS: 80053; 81001; 84703; 85025; 87804; 96361; 96374; 99284; J2405; J7030